=== PATIENT | male | born 1945 | race Caucasian/White ===

== ENCOUNTER 2016-08-01 10:16 | Inpatient (IN) | payer MEDICARE ==
[~2016-08-01] VITALS: Ht 183 cm; Wt 88.5 kg
[~2016-08-01 10:16] MED LIST: AMINOPHYLLIN200 MG PO; ASPIRIN81 M1 PO; BACTROBAN OINT0.9 GM NAS; BAYER ASPIRIN C81 MG PO; CARBIDOPA-LEVO1 EAC1 PO; CEFTRIAXONE1 GM IJ; CIPRO250 MG PO; CIPRO500 MG PO; DIFLUCAN150 MG PO; FLOMAX0.4 MG PO; FLUDROCORTISON0.1 MG PO; HYTRIN1 M1 PO; LIDEX0.05% T; LOPRESSOR25 MG PO; Lopressor25 MG PO; MACROBID100 M1 PO; MIDODRINE HCL10 MG PO; PERCOCET 325 MG1 TA2 PO; PREDNISONE10 M1 PO; PREMIERPRO RX500 M3 IV; PROSCAR5 M1 PO; PYRIDIUM200 M1 PO
[2016-08-01 10:20] VITALS: BP 112/70
[2016-08-01 10:49] LABS: ABG BASE EXCESS 6.9 mmol/L (-2.0-2.0); ABG CO2 CONTENT 37.9 mmol/L (23-27); ABG HCO3 35.5 mmol/l (22-26); ABG TEMPERATURE 98.6 F (98.0-99.0); ARTERIAL BLOOD GAS PH 7.267 (7.35-7.45)
[2016-08-01] MEDS ORDERED: ATORVASTATIN CA40 M1 PO (10:55)
[2016-08-01] MEDS ORDERED: CARBIDOPA25 MG PO (10:56)
[2016-08-01] MEDS ORDERED: DULCOLAX10 M1 RC (10:57)
[2016-08-01] MEDS ORDERED: DUONEB 3 MG/3 ML3 M1 INH (10:57)
[2016-08-01 11:01] LABS: HEMATOCRIT 34.9 % (42.0-52.0); HEMOGLOBIN 10.5 g/dl (14.0-18.0); MEAN CELL VOLUME 94.8 fl (80.0-94.0); MEAN CORPUSCULAR HGB 28.5 pg (27.0-31.0); MEAN CORPUSCULAR HGB CONC 30.1 g/dl (33.0-37.0); MEAN PLATELET VOLUME 10.7 fl (9.6-12.3); PLATELET COUNT AUTOMATED 139 10*3/uL (130-400); RED BLOOD COUNT 3.68 10*6/uL (4.50-5.90); RED CELL DISTRI WIDTH 14.3 % (0-14.5)
[2016-08-01 11:03] VITALS: BP 183/70
[2016-08-01 11:10] LABS: INTERNATIONAL NORM RATIO 1.1 (2.0-3.5); PROTHROMBIN TIME 11.2 SECONDS (9.0-12.4)
[2016-08-01 11:17] LABS: ALBUMIN 2.7 gm/dl (3.1-4.5); ALKALINE PHOSPHATASE 80 U/L (45-117); BILIRUBIN, TOTAL 0.2 mg/dl (0.2-1.0); BUN 19 mg/dl (7-24); C-REACTIVE PROTEIN 4.14 MG/DL (0-0.3); CARBON DIOXIDE 34 mmol/L (21-32); CHLORIDE 103 mmol/L (98-107); CKMB 3.8 ng/ml (0.5-3.6); CPK 105 U/L (39-308); EST GLOM FILT AFRICAN AMERICAN > 60 ml/min; GLUCOSE 143 mg/dL (65-99); POTASSIUM 4.6 mmol/L (3.5-5.1); SGOT/AST 28 IU/L (3-35); SGPT/ALT 10 U/L (12-78); SODIUM 145 mmol/L (136-145); TOTAL PROTEIN 6.5 gm/dL (6.4-8.2); TROPONIN I 0.016 ng/ml (<0.045)
[2016-08-01 11:20] LABS: EOSINOPHIL # 0.1 10*3/uL (0-0.4); EOSINOPHILS 1 % (1-4); HYPOCHROMIA SLIGHT; LYMPHOCYTE # 0.4 10*3/uL (1.3-4.4); METAMYELOCYTES 1 % (0-0); MONOCYTE # 0.2 10*3/uL (0.1-1.0); NEUTROPHIL # 7.3 10*3/uL (2.3-7.9); NEUTROPHILS 91 % (47-73); PLATELET SUFFICIENCY NORMAL (NORMAL); POLYCHROMASIA SLIGHT; TOTAL CELLS COUNTED 100 #CELLS
[2016-08-01 11:21] VITALS: BP 176/100
[2016-08-01 12:30] VITALS: BP 130/73
[2016-08-01 12:45] VITALS: BP 190/82
[2016-08-01 13:54] LABS: ABG CO2 CONTENT 34.6 mmol/L (23-27); ABG HCO3 33.4 mmol/l (22-26); ABG TEMPERATURE 97.8 F (98.0-99.0); ARTERIAL BLOOD GAS PH 7.543 (7.35-7.45)
[2016-08-01 16:28] LABS: CKMB 2.9 ng/ml (0.5-3.6); TROPONIN I 0.028 ng/ml (<0.045)
[2016-08-01 18:00] VITALS: BP 164/78
== END 2016-08-01 18:52 | disposition short-term general hospital (02) | DRG 871 ==
LOC: ED 10:16 → EDHOLD 11:21 → ICCU 11:59
PROVIDERS: Emergency Medicine; Internal Medicine Critical Care Medicine; Internal Medicine Hospice and Palliative Medicine
PROC: 5A1935Z Respiratory Ventilation, Less than 24 Consecutive Hours (ICD-10-PCS; principal; 2016-08-01)
PROC: 0BH17EZ Insertion of Endotracheal Airway into Trachea, Via Natural or Artificial Opening (ICD-10-PCS; principal; 2016-08-01)
DX: A41.9 Sepsis, unspecified organism (principal); J96.01 Acute respiratory failure with hypoxia; E43 Unspecified severe protein-calorie malnutrition; J18.9 Pneumonia, unspecified organism; G93.41 Metabolic encephalopathy; J96.02 Acute respiratory failure with hypercapnia; J44.0 Chronic obstructive pulmonary disease with (acute) lower respiratory infection; D64.9 Anemia, unspecified; G20 Parkinson's disease; I16.1 Hypertensive emergency; N40.0 Benign prostatic hyperplasia without lower urinary tract symptoms; R65.20 Severe sepsis without septic shock; I25.10 Atherosclerotic heart disease of native coronary artery without angina pectoris; E78.5 Hyperlipidemia, unspecified; K57.90 Diverticulosis of intestine, part unspecified, without perforation or abscess without bleeding; R73.9 Hyperglycemia, unspecified; E78.00 Pure hypercholesterolemia, unspecified; I10 Essential (primary) hypertension; Z87.891 Personal history of nicotine dependence; Z80.9 Family history of malignant neoplasm, unspecified; Z79.82 Long term (current) use of aspirin; Z79.899 Other long term (current) drug therapy; Z68.29 Body mass index [BMI] 29.0-29.9, adult

== ENCOUNTER 2016-08-07 13:50 | Inpatient (IN) | payer MEDICARE ==
[~2016-08-07] VITALS: Ht 177.8 cm; Wt 86.8 kg
--- NOTE | ~2016-08-07 | PR ---
[place], [place] PROGRESS NOTE NAME: [id number] UNIT #: [id number] ROOM: [place] [address] DOCTOR: CHANDLER BECKER DO BIRTHDATE: [birth year] DOS: 08/07/2016 Procedure note of endotracheal intubation. Date of intubation was 08/08/2016 at 1:00 a.m. INDICATION: Respiratory distress and hypercapnia. RESIDENT: Dr. Chandler Becker. ATTENDING: Dr. Yane Ramos. A timeout was completed, verifying the correct patient, procedure, site, positioning. The patient was placed in a flat position. Sedation was used using 10 mg of propofol initially; however, later another 10 mg of propofol was used followed by 10 of etomidate. The patient was easily ventilated using an Ambu bag. The GlideScope was used and inserted into the oropharynx at which time, there was a grade 1 view of the vocal cords. Multiple attempts were initially made to place the tube. Eventually after multiple attempts, a 6.5 Macedonian endotracheal tube was inserted and visualized through the vocal cords. Stylet was removed. Colorimetric change was visualized on the CO2 meter. Breath sounds were heard in both lung bullard equally. The endotracheal tube was placed at 24 cm measured at the lips. Dr. Ontivreos was present for the entire procedure. A chest x-ray was ordered to assess for pneumothorax and to verify endotracheal tube placement. Estimated blood loss was 5 mL. The patient tolerated the procedure well and there were no complications. This is Dr. Chandler Becker dictating the patient procedure note on behalf of Dr. Ontiveros in the Emergency Department. CHANDLER BECKER DO YANE RAMOS MD CM:PNTRANS [phone] CHANLDER BECKER DO 08/08/16 0803 interface
--- NOTE | ~2016-08-07 | CON ---
[place], [place] REPORT OF CONSULTATION NAME: JUAN M FRANCISCO UNIT #: [id number] ROOM: [facility] DOCTOR: JENNY MCKEON MD,DOMITILA BIRTHDATE: [birth year] DOS: 08/08/2016 CRITICAL CARE EVALUATION AND MANAGEMENT NOTE HISTORY OF PRESENT ILLNESS: The patient was staying at the [facility], seen yesterday for the patient prior to the hospitalization. The patient has been noted awake and alert for this patient and sitting on the chair. Later on, the patient has been noted with unresponsiveness, the patient with abnormal staring. The patient was sent to the Emergency Room for further assessment, possibility of TIA was considered for this patient. The patient noted with improvement in mental status yesterday. The patient has rather developed unresponsiveness again for the patient during his admission to medical floor. He has been transferred to the Intensive Care Unit for this patient and was intubated and started on mechanical ventilation because of the change in mental status and complete unresponsiveness. The patient has been currently intubated with endotracheal tube size #7.5. He has not been reported with any seizure activity, which has been noticed for this patient at time of the resuscitative efforts. He has been currently getting intravenous Diprivan for this patient as well at this time. He has not reported any frothy secretion production or hemoptysis, which has been suctioned out from the endotracheal tube. He has not been noted any major hemodynamic instability. REVIEW OF SYSTEMS: Could not be completed since the patient is currently noted intubated and noted on mechanical ventilation. All the history has been obtained for this patient from review of the current documentation and my past consultation documentation and others. PAST MEDICAL HISTORY: 1. The patient was noted with previous hospitalization for the patient. In July 2016, the patient was treated in this hospital and discharged to the nursing facility for the patient as he had been completing the treatment for the patient for acute hypercapnic hypoxic respiratory failure with acute bacterial pneumonia, azotemia as well as thrombocytopenia. 2. Past medical history for this patient was known as history of longstanding parkinsonism. 3. History of past acute respiratory failure requiring intubation and mechanical ventilation. 4. Oropharyngeal dysphagia of the patient as well. 5. Essential hypertension. 6. Urinary tract infection. 7. Several TIAs in the past. 8. History of moderate obesity. PAST SURGICAL HISTORY: 1. TURP for this patient. 2. Cystoscopy. 3. Intubation and mechanical ventilation in May 2016. 4. Previous possible bronchoscopy for the patient with the last bronchoscopy done on 07/21/2016. [place], [place] REPORT OF CONSULTATION NAME: JUAN M FRANCISCO UNIT #: [id number] ROOM: [facility] DOCTOR: JENNY MCKEON MD,DOMITILA BIRTHDATE: [birth year] SOCIAL HISTORY: The patient , [facility], for the past several months intermittently. The patient also remained in the long-term acute care facility in the past for the patient as well. He has not been noted any history of active tobacco use. Tobacco use has been noted in the past, which was discontinued several years ago, approximately half a pack to a pack of cigarettes per day. There was no history of illicit drug use or any alcohol use. FAMILY HISTORY: Mother for this patient from complication of natural causes of the patient at the age of 9090 years old. Father at the age of 7070 years old, complication related to unknown cancer. MEDICATIONS: Current administered medications noted use of Lipitor, prednisone 50 mg daily, Flomax, aspirin, finasteride, Lovenox, metoprolol tartrate, IV Rocephin and IV propofol. The patient also getting Lovenox for the patient DVT prophylaxis. PHYSICAL EXAMINATION: GENERAL: A 71 years old male who has been currently noted intubated on mechanical ventilation at this time. The patient's height was noted as 5 feet 10 inches, weight of 191 pounds, BMI 27.4. VITAL SIGNS: For the patient which were recorded showed the temperature noted as normal, respiratory rate 12, heart rate 82, blood pressure 130/60-122/60 at the present time. HEENT: The patient orally intubated. NECK: Supple. Head was atraumatic. Eyes nonicterus. CARDIOVASCULAR SYSTEM: S1, S2 is audible. LUNGS: The patient was noted without any wheezing or crackles at the present time. ABDOMEN: Soft, nontender, bowel sounds present. CENTRAL NERVOUS SYSTEM: Currently, the patient intubated, noted on mechanical ventilation. LABORATORY DATA: The CBC yesterday of the patient in the Emergency Room for the patient on admission, hemoglobin 10.5, hematocrit 34.7, WBC count was normal, platelet count was normal. Lactic acid 0.6 yesterday. PT/PTT yesterday on admission normal. CMP of the patient on 08/07/2016 for the patient shows BUN 32, creatinine was normal. CO2 was noted as 37. CPK 27, lipase mildly elevated 656, albumin 2.7, total protein of 6.0 mildly decreased. CBC for the patient that was done this morning was essentially noted stable and the same with normal WBC count. BMP of this morning for this patient, BUN 33, creatinine remains normal. Glucose was normal, sodium 146. CBC of the patient of 08/08/2016, hemoglobin 10.2, hematocrit 33.2, platelet count was normal and WBC count was normal. Urine culture of the patient showed no bacterial growth. Preliminary finding of culture results were pending. Arterial blood gas that was done yesterday for the patient, pH of 7.25, pCO2 87.7, pO2 80 prior to intubation and mechanical ventilation. Arterial blood gas of the patient this morning for the patient on 70% oxygen, pH of 7.52, pCO2 of 42, pO2 of 134. Review of the radiology data for this patient is a next category for this patient. The patient had a chest x-ray of the patient that was done PA lateral view for the [place], [place] REPORT OF CONSULTATION NAME: JUAN M FRANCISCO UNIT #: [id number] ROOM: [facility] DOCTOR[facility] [birth year] patient 08/07/2016, the patient was noted without any acute infiltration. Ultrasound of the carotids was completed yesterday as well bilaterally showed less than 50% stenosis, bilateral internal carotid arteries. CT scan of the head was also completed for the patient on 08/07/2016 for the patient current abnormal neurologic symptoms were noted without any acute intracranial process. The chest x-ray done this morning for the patient, endotracheal tube in appropriate position, a small area of atelectasis for this patient in the left lower lung. IMPRESSION: 1. The patient who has been currently noted with acute hypercapnic hypoxic respiratory failure for the patient which is noted recurrent with unresponsiveness related to the transient ischemic attack. Possibility of acute exacerbation of chronic obstructive pulmonary disease of the patient cannot be completely excluded. 2. Chronic metabolic alkalosis for this patient as well. 3. The patient with history of parkinsonism. 4. History of parkinsonism with questionable aspiration and left lower lobe atelectasis. 5. Overall debility for the patient, which has been known. PLAN OF TREATMENT: Ventilator bundle management will be completed starting the patient on Peridex for this patient rinse as well as use of the IV Protonix. The Gram stain culture of the sputum for the patient will be obtained if there will be enough secretions to be sent to the laboratory. Continue bronchodilator for the patient to help mobilize the secretions. The patient will be started on feeding as well. Obtain the prealbumin level of the patient to assess the underlying nutritional status. Other supportive therapy, plan of management as in progress to be continued. Continue current DVT prophylaxis. Further treatment changes for the patient will be done based on the progression of the illness. Monitoring the metabolic alkalosis. The patient most likely will end up getting a tracheostomy for the patient because of the recurrent respiratory failure, unresponsiveness and past history of intubation and mechanical ventilation as well. Total time for pulmonary critical care evaluation and management for the patient today is noted 40 minutes. DOMITILA ALVARADO MD CM:CONSTR:REPORT OF CONSULTATION 1412 08/09/16 0405 interface
--- NOTE | ~2016-08-07 | PR ---
[place], [place] PROGRESS NOTE NAME: [facility]CO [id number] UNIT #: [id number] ROOM: [facility] DOCTOR: JENNY MCKEON MD,DOMITILA BIRTHDATE: [birth year] DOS: 08/09/2016 PULMONARY CRITICAL CARE EVALUATION AND MANAGEMENT SUBJECTIVE: He has been comfortably resting in the bed. The sedation has been discontinued for the patient this morning. The patient has been noted to be awake and alert this afternoon at the time of the assessment. He does not follow much of the vocal commands because of underlying history of Parkinsonism. Appears to be comfortable at this time without any distress. There was no hemodynamic instability noted. OBJECTIVE: VITAL SIGNS: For the patient which has been recorded shows the temperature for the patient normal temperature, respiratory rate recorded as 12, heart rate of 95, blood pressure 130/78-108/62. Pulse oxygen saturation of the patient recorded on 30% oxygen 100% saturation. HEENT: Chronic obesity. NECK: Supple and obese. The patient remains orally intubated. CARDIOVASCULAR: S1, S2 audible. LUNGS: The patient noted without any wheezing or crackles at the present time. Breaths are noted mildly decreased bilaterally. ABDOMEN: Soft, nontender. LABORATORY DATA: Preliminary culture of the endotracheal aspirate of the patient was noted with many white blood cells, no organisms seen with normal lora preliminary. The urine culture showed moderate growth of yeast. CBC of the patient of 08/09/2016, hemoglobin 9.9, hematocrit 30.6, platelet count was normal, WBC count was normal. CMP this morning, BUN 33, creatinine 1.22. Arterial blood gas this morning, pH of 7.56, pCO2 of 34, pO2 of 128 on 40% oxygen supplementation. The patient had a CTA of the chest that was done yesterday by the primary care attending was noted with small pulmonary embolism in the right upper lung pulmonary arterial branches for this patient with a small left-sided pleural fluid, dependent area of atelectasis noted for this patient as well, possibility of pneumonia has been also considered. IMPRESSION: 1. The patient with acute respiratory failure was noted at this time, small pulmonary embolism described in the right upper lobe for the patient. 2. Bilateral lower lobe pneumonia with aspiration. 3. History of Parkinson's disease, recurrent aspiration pneumonia as well. 4. Severe debility. 5. Resolving acute hypoxic respiratory failure. PLAN OF TREATMENT: The patient has been started on CPAP of 5, pressure support of 10, which seemed to be tolerated at this time. The current mode of mechanical ventilation will be continued off sedation for 2 hours if tolerated. The patient will be considered for liberation from mechanical ventilation and possibly use of the BiPAP afterwards as necessary. In the meantime, continue other treatment therapy, plan and management. Nutritional support will be continued until liberation from mechanical ventilation with the NG tube. [place], [place] PROGRESS NOTE NAME: JUAN M FRANCISCO UNIT #: [id number] ROOM: [facility] DOCTOR: JENNY MCKEON MD,DOMITILA BIRTHDATE: [birth year] Continue current antibiotics. Monitor culture results. Anticoagulation of the patient for the management of pulmonary embolism for this patient as well with Lovenox was started 1 mg/kg b.i.d. dosing. Continue current dose of prednisone 50 mg daily as well for the medical management of exacerbation of bronchial asthma. Supportive therapy, plan of management, other care. Total time for pulmonary critical care evaluation and management was 35 minutes. DOMITILA ALVARADO MD CM:CHELSEA [phone] DOMITILA MCKEON MD 08/09/162154 interface
--- NOTE | ~2016-08-07 | PR ---
[place], [place] PROGRESS NOTE NAME: JUAN M FRANCISCO UNIT #: [id number] ROOM: [facility] DOCTOR: DOMITILA DESAI MD BIRTHDATE: [birth year] DOS: 08/10/2016 PULMONARY FOLLOWUP SUBJECTIVE: He had been sitting on the chair this morning and was successfully liberated from mechanical ventilator yesterday. The patient has been noted with severe hematuria, which was noted at the bedside, which we noted gross hematuria. OBJECTIVE: VITAL SIGNS: The patient showed normal temperature, respiratory rate 16, heart rate 86, blood pressure 132/86. Pulse oxygen saturation of the patient recorded on room air was 94% saturation. HEENT: Chronic obesity. NECK: Supple. CARDIOVASCULAR: S1, S2 audible. LUNGS: Noted without any wheezing or crackles. ABDOMEN: Soft, nontender. LABORATORY DATA: CBC: The patient's hemoglobin 10.1, hematocrit 31.2, platelet count were normal. WBC count normal. The cultures of the endotracheal aspirate shows normal lora. The BMP of the patient this morning: BUN 33, creatinine was normal. Arterial blood gas yesterday prior to liberation of mechanical ventilation, CPAP mode, pH of 7.46, pCO2 of 43, pO2 of 140. IMPRESSION: 1. The patient has been currently noted with acute pulmonary embolism, acute respiratory failure, and severe hematuria for the patient was noted at the present time as well. 2. Past history of transient ischemic attack and cerebrovascular accident. 3. History of parkinsonism. PLAN OF TREATMENT: The patient needs to be assessed by the Urology services. It was difficult for the patient to continue anticoagulation because of current gross hematuria. He might require IVC filter placement for that. In the meantime, continue with supportive therapy, plan and management, usual care, treatment and plan of management. Supportive care. [place], [place] PROGRESS NOTE NAME: JUAN M FRANCISCO UNIT #: [id number] ROOM: [facility] DOCTOR: DOMITILA DESAI MD BIRTHDATE: [birth year] DOMITILA ALVARADO MD CM:PNTRANS [phone] DOMITILA MCKEON MD 08/11/16 1553 interface
[~2016-08-07 13:50] MED LIST changes: +ATORVASTATIN CA40 M1 PO; +CARBIDOPA25 MG PO; +DULCOLAX10 M1 RC; +DUONEB 3 MG/3 ML3 M1 INH
[2016-08-07 14:04] VITALS: BP 116/65
[2016-08-07 14:26] LABS: BASO % 0.1 % (0.0-1.0); EOS # 0.1 10*3/uL (0.0-0.4); EOS % 0.8 % (1.0-4.0); HEMATOCRIT 34.7 % (42.0-52.0); HEMOGLOBIN 10.5 g/dl (14.0-18.0); LYMPH # 0.4 10*3/uL (1.3-4.4); LYMPH % 4.8 % (27.0-41.0); MEAN CORPUSCULAR HGB 28.2 pg (27.0-31.0); MEAN CORPUSCULAR HGB CONC 30.3 g/dl (33.0-37.0); MONO # 0.3 10*3/uL (0.1-1.0); MONO % 4.4 % (3.0-9.0); NEUT # 6.5 10*3/uL (2.3-7.9); NEUT % 89.5 % (47.0-73.0); PLATELET COUNT AUTOMATED 161 10*3/uL (130-400); RED BLOOD COUNT 3.73 10*6/uL (4.50-5.90); RED CELL DISTRI WIDTH 14.3 % (0-14.5); WHITE BLOOD COUNT 7.3 10*3/uL (4.8-10.8)
[2016-08-07 14:35] LABS: INTERNATIONAL NORM RATIO 1.1 (2.0-3.5); PROTHROMBIN TIME 11.7 SECONDS (9.0-12.4)
[2016-08-07] MEDS ORDERED: MILK OF MA400 MG/5 M PO (14:36)
[2016-08-07] MEDS ORDERED: LOPRESSOR25 MG PO (14:37)
[2016-08-07] MEDS ORDERED: PROSCAR5 M1 PO (14:37)
[2016-08-07] MEDS ORDERED: PREDNISONE10 M1 PO (14:39)
[2016-08-07 14:48] LABS: ALBUMIN 2.7 gm/dl (3.1-4.5); ALKALINE PHOSPHATASE 75 U/L (45-117); BILIRUBIN, TOTAL 0.3 mg/dl (0.2-1.0); BUN 32 mg/dl (7-24); CARBON DIOXIDE 37 mmol/L (21-32); CHLORIDE 102 mmol/L (98-107); CKMB 0.7 ng/ml (0.5-3.6); EST GLOM FILT AFRICAN AMERICAN > 60 ml/min; GLUCOSE 114 mg/dL (65-99); MAGNESIUM 2.1 mg/dL (1.5-2.1); POTASSIUM 4.7 mmol/L (3.5-5.1); SGOT/AST 13 IU/L (3-35); SODIUM 145 mmol/L (136-145)
[2016-08-07 14:49] LABS: SGPT/ALT < 6 U/L (12-78); TROPONIN I < 0.015 ng/ml (<0.045)
[2016-08-07 14:50] LABS: CPK 27 U/L (39-308)
[2016-08-07 16:23] LABS: BILIRUBIN NEGATIVE (NEGATIVE); BLOOD 3+ (NEGATIVE); CLARITY CLOUDY (CLEAR); COLOR RED (YELLOW); GLUCOSE NEGATIVE (NEGATIVE); KETONE NEGATIVE (NEGATIVE); NITRITE NEGATIVE (NEGATIVE); PH 5.5 (5.0-9.0); PROTEIN 2+ (NEGATIVE); SPECIFIC GRAVITY 1.015 (1.005-1.030); UROBILINOGEN 0.2 E.U./dl (0.2-1.0)
[2016-08-07 16:24] LABS: LEUKO ESTERASE 3+ (NEGATIVE)
[2016-08-07 16:36] LABS: BACTERIA 1+; RBC TNTC rbc/hpf (0-2); URINE REFLEX COMMENT YES (NO); WBC TNTC wbc/hpf (0-5)
[2016-08-07 17:00] VITALS: BP 130/60
[2016-08-07 20:00] VITALS: BP 137/66
[2016-08-07 23:18] VITALS: BP 116/57
[2016-08-07 23:35] LABS: EOS % 0.5 % (1.0-4.0); HEMATOCRIT 36.1 % (42.0-52.0); HEMOGLOBIN 10.9 g/dl (14.0-18.0); IG # 0.1 10*3/uL (0.0-0.1); LYMPH # 0.7 10*3/uL (1.3-4.4); LYMPH % 8.8 % (27.0-41.0); MEAN CELL VOLUME 92.6 fl (80.0-94.0); MEAN CORPUSCULAR HGB 27.9 pg (27.0-31.0); MEAN CORPUSCULAR HGB CONC 30.2 g/dl (33.0-37.0); MEAN PLATELET VOLUME 10.3 fl (9.6-12.3); MONO # 0.3 10*3/uL (0.1-1.0); MONO % 4.2 % (3.0-9.0); NEUT # 6.6 10*3/uL (2.3-7.9); NEUT % 85.7 % (47.0-73.0); PLATELET COUNT AUTOMATED 167 10*3/uL (130-400); RED CELL DISTRI WIDTH 14.3 % (0-14.5); WHITE BLOOD COUNT 7.7 10*3/uL (4.8-10.8)
[2016-08-07 23:53] LABS: ALBUMIN 2.8 gm/dl (3.1-4.5); ALKALINE PHOSPHATASE 68 U/L (45-117); BILIRUBIN, TOTAL 0.2 mg/dl (0.2-1.0); BUN 31 mg/dl (7-24); CARBON DIOXIDE 39 mmol/L (21-32); CHLORIDE 101 mmol/L (98-107); EST GLOM FILT AFRICAN AMERICAN > 60 ml/min; GLUCOSE 98 mg/dL (65-99); MAGNESIUM 2.2 mg/dL (1.5-2.1); POTASSIUM 4.7 mmol/L (3.5-5.1); SGOT/AST 11 IU/L (3-35); SGPT/ALT < 6 U/L (12-78); SODIUM 145 mmol/L (136-145); TROPONIN I < 0.015 ng/ml (<0.045)
[2016-08-08] VITALS (12 sets, daily range): BP systolic 98–142; BP diastolic 58–76
[2016-08-08 00:05] LABS: ABG CO2 CONTENT 40.5 mmol/L (23-27); ABG HCO3 37.8 mmol/l (22-26); ABG TEMPERATURE 97.5 F (98.0-99.0); ARTERIAL BLOOD GAS PH 7.253 (7.35-7.45)
[2016-08-08 05:11] LABS: ABG CO2 CONTENT 36.3 mmol/L (23-27); ABG TEMPERATURE 98.4 F (98.0-99.0); ARTERIAL BLOOD GAS PH 7.523 (7.35-7.45)
[2016-08-08 05:48] LABS: BUN 33 mg/dl (7-24); CARBON DIOXIDE 39 mmol/L (21-32); CHLORIDE 100 mmol/L (98-107); CHOLESTEROL 182 mg/dL (<200); EST GLOM FILT AFRICAN AMERICAN > 60 ml/min; FREE T4 1.06 ng/dl (0.76-1.46); GLUCOSE 76 mg/dL (65-99); HDL CHOLESTEROL 82 mg/dl (40-60); LDL CHOLESTEROL 72 mg/dL (9-159); MAGNESIUM 2.1 mg/dL (1.5-2.1); PHOSPHOROUS 2.2 mg/dL (2.5-4.9); POTASSIUM 4.5 mmol/L (3.5-5.1); SODIUM 146 mmol/L (136-145); TRIGLYCERIDES 141 mg/dl (<150); VLDL CHOLESTEROL 28 mg/dL (6-40)
[2016-08-08 05:54] LABS: BASO % 0.1 % (0.0-1.0); EOS # 0.1 10*3/uL (0.0-0.4); EOS % 1.3 % (1.0-4.0); HEMATOCRIT 33.6 % (42.0-52.0); HEMOGLOBIN 10.2 g/dl (14.0-18.0); LYMPH # 0.7 10*3/uL (1.3-4.4); LYMPH % 9.5 % (27.0-41.0); MEAN CELL VOLUME 91.3 fl (80.0-94.0); MEAN CORPUSCULAR HGB 27.7 pg (27.0-31.0); MEAN CORPUSCULAR HGB CONC 30.4 g/dl (33.0-37.0); MEAN PLATELET VOLUME 10.9 fl (9.6-12.3); MONO # 0.3 10*3/uL (0.1-1.0); MONO % 4.4 % (3.0-9.0); NEUT # 5.8 10*3/uL (2.3-7.9); NEUT % 84.3 % (47.0-73.0); PLATELET COUNT AUTOMATED 154 10*3/uL (130-400); RED BLOOD COUNT 3.68 10*6/uL (4.50-5.90); RED CELL DISTRI WIDTH 14.1 % (0-14.5); WHITE BLOOD COUNT 6.9 10*3/uL (4.8-10.8)
[2016-08-08 07:20] LABS: HEMOGLOBIN A1c 5.4 % (4.8-5.6)
[2016-08-08 07:57] LABS: FOLIC ACID 21.93 ng/mL (>5.38); VITAMIN D, 25-HYDROXY 14.6 ng/mL (30-100)
[2016-08-09] VITALS (9 sets, daily range): BP systolic 84–148; BP diastolic 52–82
[2016-08-09 04:39] LABS: ABG BASE EXCESS 8.9 mmol/L (-2.0-2.0); ABG CO2 CONTENT 32.5 mmol/L (23-27); ABG HCO3 31.5 mmol/l (22-26); ABG TEMPERATURE 98.9 F (98.0-99.0); ARTERIAL BLOOD GAS PH 7.565 (7.35-7.45)
[2016-08-09 06:08] LABS: BASO % 0.2 % (0.0-1.0); EOS # 0.1 10*3/uL (0.0-0.4); EOS % 2.4 % (1.0-4.0); HEMATOCRIT 30.6 % (42.0-52.0); HEMOGLOBIN 9.9 g/dl (14.0-18.0); IG # 0.1 10*3/uL (0.0-0.1); LYMPH # 0.9 10*3/uL (1.3-4.4); LYMPH % 15.5 % (27.0-41.0); MEAN CORPUSCULAR HGB 28.4 pg (27.0-31.0); MEAN CORPUSCULAR HGB CONC 32.4 g/dl (33.0-37.0); MEAN PLATELET VOLUME 11.4 fl (9.6-12.3); MONO # 0.3 10*3/uL (0.1-1.0); MONO % 4.6 % (3.0-9.0); NEUT # 4.2 10*3/uL (2.3-7.9); NEUT % 76.4 % (47.0-73.0); PLATELET COUNT AUTOMATED 158 10*3/uL (130-400); RED BLOOD COUNT 3.49 10*6/uL (4.50-5.90); RED CELL DISTRI WIDTH 14.5 % (0-14.5); WHITE BLOOD COUNT 5.5 10*3/uL (4.8-10.8)
[2016-08-09 06:20] LABS: ALBUMIN 2.6 gm/dl (3.1-4.5); ALKALINE PHOSPHATASE 55 U/L (45-117); BILIRUBIN, TOTAL 0.3 mg/dl (0.2-1.0); BUN 36 mg/dl (7-24); CARBON DIOXIDE 34 mmol/L (21-32); CHLORIDE 104 mmol/L (98-107); EST GLOM FILT AFRICAN AMERICAN > 60 ml/min; GLUCOSE 86 mg/dL (65-99); SGOT/AST 14 IU/L (3-35); SGPT/ALT 15 U/L (12-78); SODIUM 142 mmol/L (136-145); TOTAL PROTEIN 5.4 gm/dL (6.4-8.2)
[2016-08-09 06:21] LABS: PREALBUMIN 23 mg/dl (20-40)
[2016-08-09 06:30] LABS: POTASSIUM 3.4 mmol/L (3.5-5.1)
[2016-08-09 06:32] LABS: MEAN CELL VOLUME 87.7 fl (80.0-94.0)
[2016-08-09 14:57] LABS: ABG BASE EXCESS 6.5 mmol/L (-2.0-2.0); ABG HCO3 30.7 mmol/l (22-26); ABG TEMPERATURE 98.1 F (98.0-99.0); ARTERIAL BLOOD GAS PH 7.461 (7.35-7.45)
[2016-08-10] VITALS: BP 120/70
[2016-08-10 04:00] VITALS: BP 133/67
[2016-08-10 06:51] LABS: BUN 33 mg/dl (7-24); CARBON DIOXIDE 30 mmol/L (21-32); CHLORIDE 106 mmol/L (98-107); EST GLOM FILT AFRICAN AMERICAN > 60 ml/min; GLUCOSE 71 mg/dL (65-99); SODIUM 144 mmol/L (136-145)
[2016-08-10 07:00] LABS: HEMATOCRIT 31.2 % (42.0-52.0); HEMOGLOBIN 10.1 g/dl (14.0-18.0); MEAN CELL VOLUME 88.4 fl (80.0-94.0); MEAN CORPUSCULAR HGB 28.6 pg (27.0-31.0); MEAN CORPUSCULAR HGB CONC 32.4 g/dl (33.0-37.0); MEAN PLATELET VOLUME 12.5 fl (9.6-12.3); PLATELET COUNT AUTOMATED 139 10*3/uL (130-400); RED BLOOD COUNT 3.53 10*6/uL (4.50-5.90); RED CELL DISTRI WIDTH 14.6 % (0-14.5); WHITE BLOOD COUNT 10.1 10*3/uL (4.8-10.8)
[2016-08-10 08:00] VITALS: BP 166/85
[2016-08-10 12:00] VITALS: BP 133/66
[2016-08-10] MEDS ORDERED: ENOXAPARIN80 MG/0.2 SC (14:18)
[2016-08-10 16:00] VITALS: BP 109/66; BP 137/71; BP 143/62
== END 2016-08-10 18:03 | disposition short-term general hospital (02) | DRG 208 ==
LOC: ED 13:50 → EDHOLD 15:59 → ICCU 15:59 → 5E 16:26 → ICCU 23:36
PROVIDERS: Internal Medicine; Internal Medicine Critical Care Medicine; Nurse Practitioner Family; Student in an Organized Health Care Education/Training Program
PROC: 0BH17EZ Insertion of Endotracheal Airway into Trachea, Via Natural or Artificial Opening (ICD-10-PCS; principal; 2016-08-08)
PROC: 5A1935Z Respiratory Ventilation, Less than 24 Consecutive Hours (ICD-10-PCS; principal; 2016-08-08)
DX: J96.21 Acute and chronic respiratory failure with hypoxia (principal); I26.99 Other pulmonary embolism without acute cor pulmonale; E43 Unspecified severe protein-calorie malnutrition; E87.0 Hyperosmolality and hypernatremia; N39.0 Urinary tract infection, site not specified; G20 Parkinson's disease; N18.3 Chronic kidney disease, stage 3 (moderate); D64.9 Anemia, unspecified; G45.9 Transient cerebral ischemic attack, unspecified; J44.1 Chronic obstructive pulmonary disease with (acute) exacerbation; J96.22 Acute and chronic respiratory failure with hypercapnia; I12.9 Hypertensive chronic kidney disease with stage 1 through stage 4 chronic kidney disease, or unspecified chronic kidney disease; N40.0 Benign prostatic hyperplasia without lower urinary tract symptoms; R73.9 Hyperglycemia, unspecified; I25.10 Atherosclerotic heart disease of native coronary artery without angina pectoris; E55.9 Vitamin D deficiency, unspecified; D72.825 Bandemia; Q13.0 Coloboma of iris; Z87.891 Personal history of nicotine dependence; Z80.9 Family history of malignant neoplasm, unspecified; Z79.82 Long term (current) use of aspirin; Z79.899 Other long term (current) drug therapy; Z68.28 Body mass index [BMI] 28.0-28.9, adult

== ENCOUNTER 2016-08-25 05:34 | Inpatient (IN) | payer MEDICARE ==
[2016-08-25] VITALS (13 sets, daily range): BP systolic 92–141; BP diastolic 37–66
[~2016-08-25] VITALS: Ht 182.8 cm; Wt 87.8 kg
--- NOTE | ~2016-08-25 | CON ---
[place], [place] REPORT OF CONSULTATION NAME: JUAN M FRANCISCO UNIT #: [id number] ROOM: [facility] DOCTOR: DOMITILA DESAI MD BIRTHDATE: [birth year] DOS: 08/25/2016 PULMONARY CONSULTATION, EVALUATION AND MANAGEMENT REASON FOR CONSULTATION: Acute respiratory failure. HISTORY OF PRESENT ILLNESS: A 71-year-old white male who was a resident at the nursing facility, was admitted to the residential facility about 5-6 days ago after treatment in this hospital. The patient has been brought back to the hospital emergency room. The patient has been noted with increased lethargy with change in mental status at the nursing facility. The patient has been noted with hypoxia as well, started 100% nonrebreather mask. He was also noted with some hypotension and also noted with evidence of severe hyperkalemia. The patient has been admitted to the hospital for further medical management. The patient was requested to be transferred to ___ [facility] for this patient, but the hospital stated that the patient will be responsible for the out of pocket expense of this patient. So, subsequently the patient admitted to this hospital for further medical management. He has been currently noted with intubation and mechanical ventilation. The patient has been given intravenous fluids and noted with normal blood pressure. ASSESSMENT: This morning, the patient was opening his eyes with vocal commands getting intravenous Diprivan. He was noted mild sinus tachycardia as well. Small amount of hematuria was also observed in the Pradhan catheter as well, which has been mild reddish color. REVIEW OF SYSTEMS: Cannot be obtained for this patient because of the patient's current intubation and mechanical ventilatory status. Rest of history essentially of the patient has been reviewed for this patient from past documentation assessment of this patient. The previous medical history, the patient noted with last hospitalization. In this hospital, the patient was treated under care of the hospitalist service for this patient and I have seen the patient during that hospitalization on 08/10/16 and the patient was managed for this patient for acute small pulmonary embolus. The patient with acute respiratory failure, noted with severe hematuria for this patient and other problem. After that, the patient was sent to _[facility] for further medical management. For the hematuria and other problems, the details were unknown, about the patient's further workup and management at that facility. PAST MEDICAL HISTORY: The patient was noted, 1. History of longstanding parkinsonism. 2. History of current acute hypercapnic and hypoxic respiratory failure, unresponsiveness, requiring intubation and mechanical ventilation several times in the past 6-12 months. 3. Oropharyngeal dysphagia. 4. Essential hypertension. [place], [place] REPORT OF CONSULTATION NAME: JUAN M FRANCISCO UNIT #: [id number] ROOM: [facility] DOCTOR: JENNY MCKEON MD,[facility] BIRTHDATE: [birth year] 5. Urinary tract infection. 6. Past history of pneumonia. 7. Hematuria. 8. Chronic moderate obesity. 9. Significant decreased mobility patient as well. PAST SURGICAL HISTORY: 1. TURP. 2. Cystoscopy. 3. Intubation and mechanical ventilation. 4. Bronchoscopy for this patient as well. SOCIAL HISTORY: The patient is , was currently noted a [facility] of [facility] of the time in the past 6 months. The patient remains in the long-term acute care facility and other hospitals as well including [facility]. Tobacco use, the patient noted in the distant past. The patient discontinued many years ago. The patient used to smoke at that time about a pack of cigarettes per day, started as a teenager. No history of alcohol or illicit drug use. FAMILY HISTORY: Mother for this patient from complication of natural causes when she was 90 years old. Father at the age of 7070 years old from complication related to unknown cancer. MEDICATIONS: Current administered medications, the patient noted use of IV Solu-Medrol, Protonix, vancomycin, Zosyn, Levaquin, and other p.r.n. medications administration. DRUG ALLERGY HISTORY: The patient was noted as no known drug allergies. PHYSICAL EXAMINATION: GENERAL: A 71-year-old white male who has been currently intubated, noted on mechanical ventilation with eyes open for this patient spontaneously by the patient. At this time, not following vocal commands. HEENT: He is orally intubated. Orogastric tube is in place. NECK: Supple, short and obese. CARDIOVASCULAR: S1, S2 audible. LUNGS: Without any wheeze or crackles. ABDOMEN: Soft, nontender. LABORATORY DATA: Lactic acid noted 1.4 today. INR this morning was noted 1.2 subtherapeutic. BMP 08/25, the patient noted BUN 75, creatinine 3.61. Glucose 132. Potassium 6.4. The albumin 2.1, total protein of 5.2. CBC of the patient 08/25 WBC count of 18,000, hemoglobin 9.2, hematocrit 29.8, platelet count 23,000 with 85% segmented neutrophils. [place], [place] REPORT OF CONSULTATION NAME: JUAN M FRANCISCO UNIT #: [id number] ROOM: [facility] DOCTOR: JENNY MCKEON MD,[facility] BIRTHDATE: [birth year] The chest x-ray of the patient that was done for the patient on 08/25, limited view for this patient, endotracheal tube and NG tube was noted in appropriate position. Small left basilar area of infiltration was also noted. Arterial blood gas pH of 7.25, pCO2 of 59, pO2 of 98 for this patient on the mechanical ventilator early this morning. The patient has a V/Q scan done for this patient during this admission at 8 a.m., was noted with only perfusion scan was done for this patient because of the patient's inability to do the ventilation component because of the mechanical ventilation described. No major perfusion defects. The arterial blood gas for this patient 60% oxygen, pH of 7.29, pCO2 of 53, pO2 of 145 ____ for this patient as change in mechanical ventilator settings assist control mode with tidal volume of 650, PEEP of 5.0 and oxygen decreased from 80% to 60% oxygen. Urine drug screen for the patient was also done for this patient that was noted all negative. Blood culture for patient from previous admission. The patient on 08/07 showed no bacterial growth reported on final culture report this morning. IMPRESSION: 1. The patient has been currently admitted to the hospital for unresponsiveness, signs of hypotension, acute severe hypoxic and hypercapnic respiratory failure, most likely related to aspiration pneumonia. The patient's left lower lobe could be very likely the source of infection. The etiology would be considered with gram-positive and gram-negative organisms. 2. History of longstanding parkinsonism for this patient in mostly bed bound status. The patient was noted for several months for this patient intermittently. 3. The patient with history of chronic obesity as well. 4. Hematuria for the patient, which has been noted, very mild at this time, noted gross hematuria previously. PLAN OF TREATMENT: Agree with use of current broad spectrum intravenous antibiotics. Monitor culture results for this patient of the blood and urine culture. The patient has been ordered. The endotracheal aspirate culture was ordered as well. The Diprivan will be continued for sedation. For the DVT prophylaxis, the patient will be avoided any heparinized and other solution and anticoagulants because of the hematuria and ordered the SCDs. Nutrition support for this patient has been ordered. Assess the possibility of protein-calorie malnutrition suspected moderately with the prealbumin level that was ordered for the morning. Other symptoms and patient management to be continued accordingly. Usual care. Supportive therapy, plan of care. Ventilator bundle management has been initiated as well. Total time pulmonary critical care evaluation and management today was 40 minutes. [place], [place] REPORT OF CONSULTATION NAME: NOLANJUAN M Gabe UNIT #: [id number] ROOM: [facility] DOCTOR: DOMITILA DESAI MD BIRTHDATE: [birth year] DOMITILA ALVARADO MD CM:CONSTR:REPORT OF CONSULTATION 1253 08/26/16 0629 interface
--- NOTE | ~2016-08-25 | PR ---
[place], [place] PROGRESS NOTE NAME: JUAN M FRANCISCO UNIT #: [id number] ROOM: [facility]- DOCTOR: IZABELLA CRENSHAW MD BIRTHDATE: [birth year] DOS: 08/26/2016 NEPHROLOGY PROGRESS NOTE SUBJECTIVE: The patient is more alert. He remains intubated and sedated in the ICU. He nods appropriately to questions. Denies any acute pain. Plans are noted for him to transfer to Urology facility with urology support at [facility] in [place]. At this time, his vital signs were stabilized. His creatinine is improving. His urine output is acceptable, but unclear if it is completely accurately captured as he is continually leaking around his Pradhan catheter. His acidosis has resolved and his hyperkalemia has also resolved. He remains anemic. His hemoglobin is worse at 7.3 from 9.2. He has a history of high hematuria and urinalysis yesterday was positive for blood as well as protein. INR is within acceptable limits, but he is on heparin drip. His renal ultrasound was done yesterday, which showed moderate right hydroureteronephrosis, irregular posterior bladder wall. Lower extremity Doppler showed no evidence of DVT. Chest radiograph this morning was also reviewed, which showed some atelectasis. PHYSICAL EXAMINATION: VITAL SIGNS: Today, he is intubated, sedated. Blood pressure 134/79, heart rates 89-100, respiratory rate 15-12, pulse ox 98%. GENERAL: Critically ill, intubated, sedated, comfortable, ET tube is in place. Sclerae are anicteric. Extraocular muscles appear intact. LUNGS: Clear bilaterally, no audible rales or wheeze. CARDIOVASCULAR: Rate is tachycardic. No audible rub. ABDOMEN: Soft, nontender, nondistended. No JVD. No CVA tenderness. Pradhan catheter continues to leak, some tinge of hematuria. LABORATORIES AND DIAGNOSTICS: A pH is 7.45, pCO2 of 37, pO2 89, sodium 143, potassium 4.3, chloride 106, bicarb 28, BUN 68, creatinine 2.58. A1c 5.3, phosphorus 5.4, calcium 7.3, magnesium 1.8. White blood cell count is down to 10.1 from 18 yesterday. Hemoglobin is also down to 7.3 from 9.2 and platelets 137. Urinalysis as noted above. ASSESSMENT AND PLAN: 1. Acute kidney injury. This is improving, likely sepsis and prerenal in nature, some ATN, possible obstructive element as well. There is a right-sided predominance for his renal function as well and right-sided hydronephrosis was noted. He had a prior stent placed by Urology at [facility]. There is no urology support here. Apparently, they refused to take him from the ER and the plan is for him to be transferred to [facility]. The left kidney was 9.3 cm, the right kidney 11.7 cm. Hyperkalemia has improved. Acidosis has also improved and anemia is worse, transfused per primary service. Case discussed with the nurse. [place], [place] PROGRESS NOTE NAME: JUAN M FRANCISCO UNIT #: [id number] ROOM: [facility] DOCTOR: FLOWER VASQUEZ,IZABELLA Ybarra BIRTHDATE: [birth year] IZABELLA CRENSHAW MD CM:PNTRANS [id number] IZABELLA CRENSHAW MD 08/27/16 0603 interface
--- NOTE | ~2016-08-25 | PR ---
[place], [place] PROGRESS NOTE NAME: JUAN M FRANCISCO [facility] #: [id number] UNIT #: [id number] ROOM: [facility] DOCTOR: JENNY MCKEON MD,DOMITILA BIRTHDATE: [birth year] DOS: 08/26/2016 PULMONARY CRITICAL CARE EVALUATION AND MANAGEMENT NOTE SUBJECTIVE: The patient remains in the hospital for the patient and noted mechanical ventilator at this time. Sedation was continued for this patient with lower dose of intravenous Diprivan. He was not noted with any vasopressor therapy. The patient has been currently getting IV unfractionated heparin for this patient as well. He has been noted without any acute hemodynamic instability, feeding for this patient was continued for this patient as renal formula at 40 mL an hour at this time and the dose the patient had been gradually adjusted and progressively increased. OBJECTIVE: VITAL SIGNS: For the patient shows a normal temperature, respiratory rate 12 for this patient was noted. Heart rate of 89-92, blood pressure 112/70-101/55. Intake for the patient is 4.262 liters. The output was 1.631 liters. Pulse oxygen saturation of the patient is noted on 40% oxygen is 98% saturation. HEENT: The patient shows no new change. Head was atraumatic. NECK: Supple. The patient is orally intubated. Orogastric tube is in place. CARDIOVASCULAR: S1, S2 audible. LUNGS: Moderate reduction in the breath sounds were noted in the lungs bilaterally. ABDOMEN: Soft and obese. EXTREMITIES: Shows mild edema. LABORATORY DATA: ABG for the patient this morning assist control mode of mechanical ventilation. The patient's pH of 7.45, pCO2 of 36, pO2 of 88.9. BMP of the patient this morning was noted BUN 68, creatinine 2.58. Glucose 179. Prealbumin was noted as 13. TSH was normal. CK-MB, troponin shows CK-MB was mildly elevated at 4.2, normal CPK and troponin. PT and PTT for the patient this morning were done shows INR remains subtherapeutic at 1.2. PTT noted as 83.1, which is in the therapeutic range. Chest x-ray of the patient that was done this morning shows small area of infiltration with pleural fluid noted. Endotracheal tube for this patient noted appropriate position. NG tube is in the stomach. Endotracheal aspirate of the patient yesterday, many white blood cells, moderate epithelial cells, moderate gram-positive cocci in pairs, chains and clusters with few gram-negative bacilli and gram-positive bacilli. Final culture results were pending. The urine culture showed moderate growth of yeast. IMPRESSION: 1. The patient will be currently admitted to the hospital and noted with acute hypercapnic and hypoxic respiratory failure. 2. Acute sepsis in patient with hypotension, which has been currently resolved. 3. The patient with past history of pulmonary embolism for the patient with subtherapeutic INR, currently getting unfractionated heparin and Coumadin. The patient to maintain a therapeutic INR. 4. History of parkinsonism as well. [place], [place] PROGRESS NOTE NAME: JUAN M FRANCISCO UNIT #: [id number] ROOM: [facility] DOCTOR: DOMITILA DESAI MD BIRTHDATE: [birth year] 5. Acute kidney injury for this patient. ____ noted with reduction in creatinine from yesterday. 6. Amddwodg-pb-mmdafx protein calorie malnutrition status as well. PLAN OF TREATMENT: Continue to maximize the feeding. Continue ventilator bundle management. Continue sedation. Continuation of the antibiotics for the acute pneumonia, adjustment of the antibiotics for the patient will be done based on the culture results. The pneumonia would be considered with gram-positive and gram-negative organisms for the patient, most likely related to aspiration. Monitor the other respiratory status closely. Monitor for abnormal hematuria, which developed previously with anticoagulation at this time, hematuria has been noted, minimal or none. Assess the patient tomorrow morning for the patient for possibility of gradual liberation from mechanical ventilator. Total time for pulmonary critical care evaluation and management was 36 minutes. DOMITILA ALVARADO MD CM:PNTRANS [id number] DOMITILA MCKEON MD 08/27/16130 interface
[~2016-08-25 05:34] MED LIST changes: +ENOXAPARIN80 MG/0.2 SC; +MILK OF MA400 MG/5 M PO
[2016-08-25 06:02] LABS: HEMATOCRIT 29.8 % (42.0-52.0); HEMOGLOBIN 9.2 g/dl (14.0-18.0); MEAN CORPUSCULAR HGB 27.8 pg (27.0-31.0); MEAN CORPUSCULAR HGB CONC 30.9 g/dl (33.0-37.0); MEAN PLATELET VOLUME 11.6 fl (9.6-12.3); PLATELET COUNT AUTOMATED 203 10*3/uL (130-400); RED BLOOD COUNT 3.31 10*6/uL (4.50-5.90); RED CELL DISTRI WIDTH 14.5 % (0-14.5)
[2016-08-25 06:13] LABS: INTERNATIONAL NORM RATIO 1.2 (2.0-3.5); PROTHROMBIN TIME 12.6 SECONDS (9.0-12.4)
[2016-08-25 06:19] LABS: ALBUMIN 2.1 gm/dl (3.1-4.5); ALKALINE PHOSPHATASE 60 U/L (45-117); BILIRUBIN, DIRECT 0.1 mg/dL (0.0-0.2); BILIRUBIN, TOTAL 0.3 mg/dl (0.2-1.0); BUN 75 mg/dl (7-24); CARBON DIOXIDE 30 mmol/L (21-32); CHLORIDE 100 mmol/L (98-107); EST GLOM FILT AFRICAN AMERICAN 21 ml/min; GLUCOSE 132 mg/dL (65-99); SGOT/AST 15 IU/L (3-35); SGPT/ALT 14 U/L (12-78); SODIUM 139 mmol/L (136-145); TOTAL PROTEIN 5.4 gm/dL (6.4-8.2)
[2016-08-25 06:21] LABS: TROPONIN I < 0.015 ng/ml (<0.045)
[2016-08-25 06:27] LABS: LYMPHOCYTE # 1.1 10*3/uL (1.3-4.4); MONOCYTE # 1.6 10*3/uL (0.1-1.0); NEUTROPHIL # 15.3 10*3/uL (2.3-7.9); NEUTROPHILS 85 % (47-73); PLATELET SUFFICIENCY NORMAL (NORMAL); POLYCHROMASIA SLIGHT; POTASSIUM 6.4 mmol/L (3.5-5.1); TOTAL CELLS COUNTED 100 #CELLS; TOXIC GRANULATION SLIGHT
[2016-08-25] MEDS ORDERED: FLUDROCORTISON0.1 MG PO (07:04)
[2016-08-25] MEDS ORDERED: MIDODRINE HCL5 M1 PO (07:04)
[2016-08-25] MEDS ORDERED: MILK OF MA400 MG/5 M PO (07:05)
[2016-08-25] MEDS ORDERED: METHYLPREDNI40 MG/M1 IV (07:06)
[2016-08-25 07:10] LABS: ABG BASE EXCESS -1.6 mmol/L (-2.0-2.0); ABG CO2 CONTENT 26.8 mmol/L (23-27); ABG HCO3 25.1 mmol/l (22-26); ARTERIAL BLOOD GAS PH 7.253 (7.35-7.45); ARTERIAL BLOOD GAS PO2 98.7 mmHg (80-90)
[2016-08-25 09:59] LABS: BILIRUBIN NEGATIVE (NEGATIVE); BLOOD 3+ (NEGATIVE); CLARITY CLOUDY (CLEAR); COLOR RED (YELLOW); GLUCOSE NEGATIVE (NEGATIVE); KETONE NEGATIVE (NEGATIVE); LEUKO ESTERASE 3+ (NEGATIVE); NITRITE NEGATIVE (NEGATIVE); PROTEIN 2+ (NEGATIVE); SPECIFIC GRAVITY 1.015 (1.005-1.030); URINE AMPHETAMINES < 1000 (1000ng/ml); URINE BARBITURATES < 200 (200ng/ml); URINE COCAINE < 300 (300ng/ml); UROBILINOGEN 0.2 E.U./dl (0.2-1.0)
[2016-08-25 10:11] LABS: RBC TNTC rbc/hpf (0-2); URINE REFLEX COMMENT YES (NO)
[2016-08-25 10:12] LABS: WBC TNTC wbc/hpf (0-5)
[2016-08-25 10:34] LABS: ABG BASE EXCESS -1.2 mmol/L (-2.0-2.0); ABG CO2 CONTENT 26.6 mmol/L (23-27); ABG HCO3 24.9 mmol/l (22-26); ABG TEMPERATURE 98.6 F (98.0-99.0); ARTERIAL BLOOD GAS PH 7.293 (7.35-7.45)
[2016-08-25] MEDS ORDERED: TRIAMCINOLONE AC0.1% T (11:36)
[2016-08-25 12:41] LABS: BUN 73 mg/dl (7-24); CARBON DIOXIDE 29 mmol/L (21-32); CHLORIDE 103 mmol/L (98-107); CPK 181 U/L (39-308); EST GLOM FILT AFRICAN AMERICAN 22 ml/min; GLUCOSE 168 mg/dL (65-99); SODIUM 140 mmol/L (136-145)
[2016-08-25 12:44] LABS: TROPONIN I < 0.015 ng/ml (<0.045)
[2016-08-25 12:45] LABS: CKMB 5.3 ng/ml (0.5-3.6)
[2016-08-25 18:04] LABS: ALBUMIN 1.7 gm/dl (3.1-4.5); PHOSPHOROUS 5.5 mg/dL (2.5-4.9); POTASSIUM 5.5 mmol/L (3.5-5.1)
[2016-08-25 18:12] LABS: CPK 156 U/L (39-308)
[2016-08-25 18:15] LABS: CKMB 5.2 ng/ml (0.5-3.6)
[2016-08-25 18:16] LABS: TROPONIN I < 0.015 ng/ml (<0.045)
[2016-08-26] VITALS (11 sets, daily range): BP systolic 96–147; BP diastolic 49–79
[2016-08-26 00:56] LABS: CKMB 4.2 ng/ml (0.5-3.6); CPK 150 U/L (39-308)
[2016-08-26 00:57] LABS: TROPONIN I < 0.015 ng/ml (<0.045)
[2016-08-26 05:38] LABS: ABG BASE EXCESS 2.4 mmol/L (-2.0-2.0); ABG CO2 CONTENT 27.1 mmol/L (23-27); ABG TEMPERATURE 97.9 F (98.0-99.0); ARTERIAL BLOOD GAS PH 7.459 (7.35-7.45); ARTERIAL BLOOD GAS PO2 88.9 mmHg (80-90)
[2016-08-26 05:51] LABS: MAGNESIUM 1.8 mg/dL (1.5-2.1)
[2016-08-26 05:55] LABS: FREE T4 0.77 ng/dl (0.76-1.46); PHOSPHOROUS 5.4 mg/dL (2.5-4.9)
[2016-08-26 06:00] LABS: THYROID STIM HORMONE (HS) 0.45 uIU/ml (0.358-4.75)
[2016-08-26 06:01] LABS: POTASSIUM 4.3 mmol/L (3.5-5.1)
[2016-08-26 06:04] LABS: HEMOGLOBIN 7.3 g/dl (14.0-18.0); MEAN CORPUSCULAR HGB 27.9 pg (27.0-31.0); MEAN CORPUSCULAR HGB CONC 32.3 g/dl (33.0-37.0); MEAN PLATELET VOLUME 11.9 fl (9.6-12.3); RED BLOOD COUNT 2.62 10*6/uL (4.50-5.90); RED CELL DISTRI WIDTH 14.7 % (0-14.5); WHITE BLOOD COUNT 10.1 10*3/uL (4.8-10.8)
[2016-08-26 06:06] LABS: HEMATOCRIT 22.6 % (42.0-52.0); MEAN CELL VOLUME 86.3 fl (80.0-94.0); PLATELET COUNT AUTOMATED 137 10*3/uL (130-400)
[2016-08-26 06:12] LABS: INTERNATIONAL NORM RATIO 1.2 (2.0-3.5); PROTHROMBIN TIME 12.4 SECONDS (9.0-12.4)
[2016-08-26 06:19] LABS: HEMOGLOBIN A1c 5.3 % (4.8-5.6)
[2016-08-26 06:45] LABS: LYMPHOCYTE # 0.4 10*3/uL (1.3-4.4); NEUTROPHIL # 9.7 10*3/uL (2.3-7.9); NEUTROPHILS 96 % (47-73); PLATELET SUFFICIENCY NORMAL (NORMAL); POLYCHROMASIA SLIGHT; TOTAL CELLS COUNTED 100 #CELLS; TOXIC GRANULATION SLIGHT
[2016-08-26 06:55] LABS: FOLIC ACID 14.26 ng/mL (>5.38); VITAMIN D, 25-HYDROXY 14.8 ng/mL (30-100)
== END 2016-08-26 16:00 | disposition short-term general hospital (02) | DRG 871 ==
LOC: ED 05:34 → EDHOLD 06:49 → ICCU 06:49
PROVIDERS: Emergency Medicine; Hospitalist; Internal Medicine Critical Care Medicine; Internal Medicine Nephrology; Student in an Organized Health Care Education/Training Program
PROC: 0BH17EZ Insertion of Endotracheal Airway into Trachea, Via Natural or Artificial Opening (ICD-10-PCS; principal; 2016-08-25)
PROC: 5A1945Z Respiratory Ventilation, 24-96 Consecutive Hours (ICD-10-PCS; principal; 2016-08-25)
PROC: 30243N1 Transfusion of Nonautologous Red Blood Cells into Central Vein, Percutaneous Approach (ICD-10-PCS; 2016-08-26)
DX: A41.9 Sepsis, unspecified organism (principal); R65.21 Severe sepsis with septic shock; N17.0 Acute kidney failure with tubular necrosis; J96.01 Acute respiratory failure with hypoxia; J96.02 Acute respiratory failure with hypercapnia; J69.0 Pneumonitis due to inhalation of food and vomit; E43 Unspecified severe protein-calorie malnutrition; G20 Parkinson's disease; N13.30 Unspecified hydronephrosis; J44.0 Chronic obstructive pulmonary disease with (acute) lower respiratory infection; E87.5 Hyperkalemia; D64.9 Anemia, unspecified; I10 Essential (primary) hypertension; N40.0 Benign prostatic hyperplasia without lower urinary tract symptoms; K57.90 Diverticulosis of intestine, part unspecified, without perforation or abscess without bleeding; I25.10 Atherosclerotic heart disease of native coronary artery without angina pectoris; E78.00 Pure hypercholesterolemia, unspecified; R31.9 Hematuria, unspecified; E66.8 Other obesity; Q13.0 Coloboma of iris; Z87.891 Personal history of nicotine dependence; Z86.711 Personal history of pulmonary embolism; Z80.9 Family history of malignant neoplasm, unspecified; Z79.899 Other long term (current) drug therapy; Z68.24 Body mass index [BMI] 24.0-24.9, adult; Z87.440 Personal history of urinary (tract) infections; Z87.01 Personal history of pneumonia (recurrent)

== ENCOUNTER 2016-08-31 14:53 | Inpatient (IN) | payer MEDICARE ==
[~2016-08-31] VITALS: Ht 183 cm; Wt 91.0 kg
--- NOTE | ~2016-08-31 | PR ---
[place], [place] PROGRESS NOTE [id number] UNIT #: [id number] ROOM: [facility] DOCTOR: JENNY MCKEON MD,DOMITILA BIRTHDATE: [birth year] DOS: 09/03/2016 PULMONARY CRITICAL CARE EVALUATION AND MANAGEMENT NOTE SUBJECTIVE: The patient has been continued on the CPAP for about 12 hours or greater. The patient is switched to assist control mode of mechanical ventilation just because of mild tachypnea. The patient has not noted any acute desaturation. The patient remains awake and alert at this time and intubated. He has been ____ the nursing staff as well. OBJECTIVE: VITAL SIGNS: For the patient, which has been recorded, showed the temperature noted as 101.6 degrees Fahrenheit, respirations 13, heart rate 114, mild sinus tachycardia, blood pressure ____. Intake for the patient recorded as 3.34 L and output 3400 mL. Pulse oxygen saturation of the patient was noted on 3 L nasal canula at 97% saturation. HEENT: Examination shows head was atraumatic. Eyes nonicterus. NECK: Supple. CARDIOVASCULAR: S1, S2 audible. LUNGS: The patient was noted without any wheeze or crackles at this time. ABDOMEN: Soft and obese. EXTREMITIES: Show [id number] edema of the upper and lower extremities. LABORATORY DATA: Arterial blood gas this morning, pH of 7.53, pCO2 of 35, pO2 of 102 with 30% oxygen supplementation. INR was noted at 1.2, subtherapeutic. BMP of the patient that was done this morning shows BUN 32, creatinine 1.43, glucose 143, potassium 3.0. The chest x-ray of the patient that was done, 1 view, this morning as well was noted with no definitive acute abnormal process. Endotracheal tube was noted high riding. IMPRESSION: 1. The patient has been noted currently with acute hypoxic respiratory failure with acute pneumonia, suspected in the left lower lobe with small pleural fluid as well as ____ edema noted as well. 2. Past history of pulmonary embolism. The patient has been treated with anticoagulation as well. 3. History of advanced parkinsonism and recurrent hospitalization. 4. Moderate protein-calorie malnutrition status. PLAN OF TREATMENT: The patient has been ordered for extubation at this time. Continuation of the anticoagulation. Continue bronchodilator. The patient to be assessed for oral feeding after liberation from mechanical ventilation. A swallow test prior to starting the patient on oral food. Other previous treatment plan and management to be continued. Usual care, other supportive plan of therapy and care. Usual medical management and other therapies. Other supportive plan and management to be continued at this time. Supportive care. Total time of pulmonary critical care evaluation and management was 37 minutes. [place], [place] PROGRESS NOTE NAME: [facility] [id number] UNIT #: [id number] ROOM: [facility] DOCTOR: DOMITILA DESAI MD BIRTHDATE: [birth year] DOMITILA ALVARADO MD CM:PNTRANS [id number] DOMITILA MCKEON MD 09/03/16 1537 interface
--- NOTE | ~2016-08-31 | PR ---
[place], [place] PROGRESS NOTE NAME: JUAN M FRANCISCO UNIT #: [id number] ROOM: [facility] DOCTOR: JENNY MCKEON MD,DOMITILA BIRTHDATE: [birth year] DOS: 09/04/2016 PULMONARY FOLLOWUP NOTE SUBJECTIVE: He has been noted tachypnea at the time, but not any oxygen desaturation. The patient has been started with the BiPAP ____ at this time. He was also noted with mental status changes yesterday at the time after the patient ate his food. He has been noted without any distress this morning. The patient stopped the oral feeding and NG tube in place for the feeding. OBJECTIVE: VITAL SIGNS: Normal temperature, respiratory rate 18, heart rate 94, blood pressure 120/58. Pulse oxygen saturation noted on 3 liters cannula 98% saturation. BiPAP 98-100% saturation. The patient was liberated from mechanical ventilator yesterday. HEENT: Showed no new change. The patient has an NG tube in place. NECK: Supple. CARDIOVASCULAR: S1, S2 audible. LUNGS: The patient was noted without any wheezing or crackles at the present time. ABDOMEN: Soft, nontender and obese. EXTREMITIES: Show edema of the upper and lower extremities. LABORATORY DATA: INR noted 1.2 today. BMP this morning, BUN 32, creatinine was normal, glucose 128, potassium 3.4. CBC: WBC count 3.5, hemoglobin 9.1, hematocrit 28.6, platelet count 138,000. IMPRESSION: 1. The patient is status post liberation from mechanical ventilator. The patient with acute hypoxic respiratory failure. 2. He has had congestive heart failure ____ edema as well as acute to moderate protein-calorie malnutrition. 3. Leukopenia and anemia as well. 4. Oropharyngeal dysphagia was suspected. 5. History of advanced parkinsonism. 6. Hypotension. PLAN OF TREATMENT: Continue current plan of management, intensive care unit. The plan of management to be added on for this patient. Continue vasopressor therapy. For the hypotension management, continue the BiPAP and oxygen supplementation. Continuation of current antibiotics. Diuretic therapy for this patient. Aspiration precautions. The patient would benefit from long-term acute care facility assessment as well for further care. [place], [place] PROGRESS NOTE NAME: JUAN M FRANCISCO UNIT #: [id number] ROOM: [facility] DOCTOR: DOMITILA DESAI MD BIRTHDATE: [birth year] DOMITILA ALVARADO MD CM:PNTRANS [id number] [id number] DOMITILA MCKEON MD 09/04/16 1243 interface
--- NOTE | ~2016-08-31 | CON ---
[place], [place] REPORT OF CONSULTATION NAME: JUAN M FRANCISCO UNIT #: [id number] ROOM: [place] [address] DOCTOR: JENNY MCKEON MD,DOMITILA BIRTHDATE: [birth year] DOS: 09/01/2016 Consultation at the request of the hospitalist services. REASON FOR CONSULTATION: Acute respiratory failure. HISTORY OF PRESENT ILLNESS: A 71-year-old white male who has been known to me with past history of multiple hospitalizations and noted longstanding history of centrilobular emphysema, detention resident most of the time in the past several months. He had been admitted in this hospital and was managed for acute respiratory failure, developed hematuria and was transferred to [facility]. The patient has been managed over there and discharged to another nursing facility, [facility]. The patient has been readmitted to the hospital. The patient on 08/31/2016, was brought to the Emergency Room and the patient has been noted symptoms of shortness of breath. The patient was also noted with unresponsiveness as well. A code blue was called for the patient and was intubated and started on mechanical ventilation. Currently, the patient has been intubated, getting intravenous sedation with IV Diprivan. He has not been noted with any findings of hemoptysis or excessive secretion production from the endotracheal tube. The patient has been noted with rectal temperature elevation of 101 degrees Fahrenheit as well with mild sinus tachycardia with a heart rate of 102 beats per minute maximum heart rate was noted. REVIEW OF SYSTEMS: At this time, cannot be completed since the patient is currently intubated and remains on the mechanical ventilator. PAST MEDICAL HISTORY: 1. Noted with history of recurrent multiple hospitalizations, recently in the past 6 months or more. 2. Longstanding parkinsonism. 3. History of chronic hypercapnic and hypoxemic respiratory failure history as well. 4. Oropharyngeal dysphagia. 5. History of aspiration pneumonia. 6. Essential hypertension. 7. Urinary tract infection. 8. History of intermittent hematuria as well. 9. Chronic obesity. 10. Chronically decreased mobility and mostly bed bound status. PAST SURGICAL HISTORY: Noted. 1. TURP. 2. Cystoscopy. 3. Intubation and mechanical ventilation several times. 4. Fiberoptic bronchoscopy as well. SOCIAL HISTORY: The patient is , was a resident of detention at this time for the past 6 months. As well has been admitted to long-term acute care facility and acute care several times. He has been noted history of tobacco [place], [place] REPORT OF CONSULTATION NAME: JUAN M FARNCISCO UNIT #: [id number] ROOM: [place] [address] DOCTOR: JENNY MCKEON MD,[facility] BIRTHDATE: [birth year] use, which was discontinued many years ago. The patient used to smoke about a pack of cigarettes per day as noted previously from the . There was no history of alcohol or illicit drug use. FAMILY HISTORY: Of the patient was described as mother from complications of natural causes at the age of 9090 years old. Father from complications related to unknown cancer at the age of 7878 years old. CURRENT ADMINISTERED MEDICATION: 1. Noted use of Lovenox by the patient for therapeutic anticoagulation dose, 1 mg/kg b.i.d. 2. Tylenol 650 q. 8 hours p.r.n. use. 3. Protonix 40 mg IV daily. 4. Levophed for the medical management of hypotension. 5. Lasix 40 mg b.i.d. intravenously. 6. Levaquin, IV vancomycin, IV Zosyn and other p.r.n. medication administration. ALLERGIES: NO KNOWN DRUG ALLERGIES. PHYSICAL EXAMINATION: GENERAL: A 71-year-old white male who is currently intubated on the mechanical ventilator. Height was noted for the patient as 6 feet, weight of 200 pounds, BMI 27.1. VITAL SIGNS: Rectal temperature 101.8 degrees Fahrenheit, oral temperature noted as normal, respiratory rate recorded as 14-22, heart rate of 110 to 95 with mild sinus tachycardia, blood pressure of 128/68 to 142/70. Pulse oxygen saturation noted on 30% oxygen 97% saturation. HEENT: The patient is orally intubated, orogastric tube is in place. NECK: Supple. CARDIOVASCULAR SYSTEM: S1, S2 is audible. LUNGS: Noted without any wheeze or crackles. Breath sounds noted mildly decreased bilaterally. ABDOMEN: Noted chronic obesity. Bowel sounds present. EXTREMITIES: Shows edema of the upper and the lower extremities. LABORATORY DATA: Past culture of the endotracheal aspirate of the patient on the shows normal lora. Isolation blood culture from the also noted no bacterial growth. CBC on 08/31/2016, WBC count was noted as 6.8, hemoglobin 10.3, hematocrit of 33.7 with a platelet count of 120,000. CMP of the patient 08/31, BUN 41, creatinine 1.49, glucose 103. Albumin 1.7. ProBNP 760. BMP of the patient of 76 was noted at that time, BUN 65, creatinine 2.58. Prealbumin for this patient was noted as 13 at that time. The arterial blood gas of the patient that was done yesterday post-intubation, pH of 7.40, pCO2 of 40, pO2 of 121, 50% oxygen, tidal volume 6 and 50 mL. The arterial blood gas, which was done this morning, 30% oxygen, pH of 7.49, pCO2 of 31, pO2 100. CBC this morning, 09/01, WBC count 10.8, hemoglobin 10.9, hematocrit 33.4, platelet count 163,000. CK-MB, troponin remains normal. PT/PTT are noted, INR subtherapeutic at 1.2. BMP of patient of 12, BUN 43, creatinine 1.48. Remaining electrolytes were normal. Review of the chest x-ray of the patient post-intubation, [place], [place] REPORT OF CONSULTATION NAME: JUAN M FRANCISCO UNIT #: [id number] ROOM: [place] [address] DOCTOR: JENNY MCKEON MD,[facility] BIRTHDATE: [birth year] mechanical ventilation was noted with endotracheal tube in appropriate position. The NG tube was noted in the stomach. Endotracheal tube noted in place. Mild pulmonary venous congestion marker noted without any gross evidence of pulmonary infiltration at the present time. IMPRESSION: 1. The patient has been noted with history of recurrent unresponsiveness. The patient is currently noted with acute respiratory failure with history of advanced parkinsonism. The unresponsiveness may be related to the history of parkinsonism of the patient as well. Possibility of acute tracheobronchitis cannot be excluded. There was no evidence of gross pulmonary infiltration or consolidation noted on the chest x-ray. 2. Past history of pulmonary embolism. The patient has subtherapeutic INR at this time. 3. History of chronic obesity. 4. History of oropharyngeal dysphagia and decreased mobility. 5. History of recurrent hematuria for the patient, which worsened with the use of anticoagulants. 6. The patient with moderate protein calorie malnutrition status. PLAN OF TREATMENT: At this time, the patient will be continued on Diprivan and IV sedation. Monitor all the culture results. The patient has been noted on very broad spectrum intravenous antibiotics. After the available blood culture for this patient and the other culture results, antibiotic de-escalation showed a curve. Continue ventilator bundle management. Nutritional support has been ordered. The patient was also noted moderate protein calorie malnutrition status and oral feeding with pulmonary formula. Another prealbumin level was ordered. Past prealbumin noted 13.0. Further change in treatment for the patient to be done based on progression of the illness. Total time for pulmonary critical care evaluation and management was 34 minutes. DOMITILA ALVARADO MD CM:CONSTR:REPORT OF CONSULTATION 1034 09/01/16 2151 interface
--- NOTE | ~2016-08-31 | O ---
[place], [place] OPERATIVE NOTE NAME: JUAN M FRANCISCO UNIT #: [id number] ROOM: [place] [address] DOCTOR: LUPE VASQUEZ DO BIRTHDATE: [birth year] DOS: 08/31/2016 This is for endotracheal intubation and rapid response. The patient was found to be satting in the 88% on 2 liters nasal cannula. He was not verbally responsive, responsive to pain. Given the patient's respiratory failure and is not responsive, we decided that BiPAP would not be appropriate and his poor respiratory effort. The patient was transferred to the ICU. He was today with 20 mg of etomidate and 100 succinylcholine. A 7.5 ET tube was placed under GlideScope visualization. Breath sounds were checked and found adequate bilaterally. No sounds heard in the epigastrium. Good color changes were seen on the CO2 detector, of the tube was appreciated. The patient tolerated the procedure well. Chest x-ray pending for tube placement. LUPE VASQUEZ DO RAISA JUAREZ DO CM:OPRECORD:OPERATIVE NOTE [id number] LUPE VASQUEZ DO 08/31/161943 interface
--- NOTE | ~2016-08-31 | PR ---
[place], [place] PROGRESS NOTE NAME: JUAN M FRANCISCO UNIT #: [id number] ROOM: [facility] DOCTOR: DOMITILA DESAI MD BIRTHDATE: [birth year] DOS: 09/05/2016 SUBJECTIVE: He has been noted awake and alert at this time and endotracheal tube remains in place. The patient assessed by the speech therapy department and recommended some modification in diet because of the current dysphagia. He had been using the BiPAP. Noted with mild tachypnea. The patient was alert in no distress. OBJECTIVE: VITAL SIGNS: Normal temperature, respiratory rate 33, heart rate of 99, blood pressure of 88/47-100/55. Pulse oxygen saturation noted on 3 liters nasal cannula 97% saturation. HEENT: Examination shows no acute change. NECK: Supple. CARDIOVASCULAR: S1, S2 audible. LUNGS: Noted with pmyw-on-vjzyhapq. Decreased breath sounds noted in the lungs bilaterally. ABDOMEN: Soft, nontender and obese. EXTREMITIES: Still shows edema. LABORATORY DATA: CBC today: WBC count 3.5, hemoglobin 9.2, hematocrit 29.4, platelet count was normal. BMP this morning, BUN 30, mildly elevated; creatinine normal, glucose 126. Carbon dioxide 37, mildly elevated. IMPRESSION: 1. The patient with resolving acute hypoxic respiratory failure. 2. Mild edema. 3. Chronic metabolic alkalosis secondary to diuretic therapy. 4. Acute congestive heart failure. The patient was also suspected peripheral edema. 5. Leukopenia and anemia as well as ____ oropharyngeal dysphagia. 6. History of parkinsonism. PLAN OF TREATMENT: No change in the plan of management. Continue with the BiPAP with the oxygen supplementation, bronchodilators and other as previously. Feeding patient per recommendation of the nutrition services support. Aspiration precautions. Speech therapy. Medical management of hypertension with pressors if necessary. [place], [place] PROGRESS NOTE NAME: JUAN M FRANCISCO UNIT #: [id number] ROOM: [facility] DOCTOR: DOMITILA DESAI MD BIRTHDATE: [birth year] DOMITILA ALVARADO MD CM:PNTRANS 1105 [id number] DOMITILA MCKEON MD 09/05/16 1200 interface
--- NOTE | ~2016-08-31 | PR ---
[place], [place] PROGRESS NOTE [id number] UNIT #: [id number] ROOM: [facility] DOCTOR: JENNY MCKEON MD,DOMITILA BIRTHDATE: [birth year] DOS: 09/02/2016 PULMONARY CRITICAL CARE EVALUATION AND MANAGEMENT SUBJECTIVE: The patient remains on mechanical ventilator. The patient has been sedated with intravenous Diprivan. The feeding, which the patient has tolerated from an NG tube. He has not been noted any new changes. Tachycardia noted that was with mild hypotension at times. He has been continued on broad-spectrum intravenous antibiotics. Ventilator bundle management was also continued. Sedation was given with intravenous Diprivan. OBJECTIVE: VITAL SIGNS: Showed the temperature noted at 100.9 degrees Fahrenheit. The rectal temperature noted 100.4 degrees Fahrenheit previously. Respiratory rate 14, heart rate 119-105, blood pressure of 82/53 to 103/84 noted. Intake for the patient was noted at 2.427 liters, output 3700 mL at 1.274 liters. Pulse oxygen saturation on 30% oxygen mechanical ventilator assist control mode, 94-95% saturation. HEENT: Shows no new changes. Head was atraumatic. Eyes, nonicterus. NECK: Supple. CARDIOVASCULAR: S1, S2 is audible. LUNGS: The patient was noted without any wheezing or crackles at the present time. Breaths are noted mildly decreased bilaterally. ABDOMEN: Soft, nontender. EXTREMITIES: Show mild edema. CENTRAL NERVOUS SYSTEM: The patient is currently sedated. LABORATORY DATA: Arterial blood gas assist control mode today, pH of 7.49, pCO2 of 33, pO2 of 81.5 with 30% oxygen. CBC of 09/02/2016; WBC count 10.3, hemoglobin 9, hematocrit 30.1, platelet count 168,000. BMP on 09/02/2016 shows BUN 37, creatinine 1.50, glucose 165. Potassium noted 3.3. Prealbumin 15. Urine culture shows heavy growth of yeast. IMPRESSION: 1. The patient was currently admitted to the hospital and noted with acute hypercapnic and hypoxic respiratory failure. 2. The patient with evidence of small left pleural effusion as well with possibility of acute pneumonia cannot be completely excluded in that area. The finding noted limited because of the portable x-ray and current body habitus. 3. History of parkinsonism. 4. History of recurrent respiratory failure. The patient on intubation and mechanical ventilation. 5. Urinary tract infection as well. PLAN OF TREATMENT: The patient needs to be continued on the bronchodilators with oxygen supplementation. Ventilator bundle management will be continued. Discontinue sedation of the patient at this time. Once the patient is awake, patient trial of CPAP of 5, pressure support of 10 for possible readiness assessment of liberation from mechanical ventilator ____ plus arterial blood gases as well. Respiratory alkalosis, the patient was noted, which will be [place], [place] PROGRESS NOTE NAME: JUAN M FRANCISCO UNIT #: [id number] ROOM: [facility] DOCTOR: JENNY MCKEON MD,DOMITILA BIRTHDATE: [birth year] corrected by reducing the tidal volume if the patient failed to be liberated from mechanical ventilator. Continue maximizing nutritional support for protein calorie malnutrition status. Usual care, other supportive plan of management and therapies. Continue other previous treatment. Total time for pulmonary critical care evaluation and management was 36 minutes. DOMITILA ALVARADO MD CM:PNMINERVA [id number] DOMITILA MCKEON MD 09/02/16 1724 interface
[2016-08-31 14:53] VITALS: BP 134/76
[~2016-08-31 14:53] MED LIST changes: +METHYLPREDNI40 MG/M1 IV; +MIDODRINE HCL5 M1 PO; +TRIAMCINOLONE AC0.1% T
[2016-08-31 15:25] LABS: BASO % 0.1 % (0.0-1.0); EOS # 0.1 10*3/uL (0.0-0.4); EOS % 0.7 % (1.0-4.0); HEMATOCRIT 33.7 % (42.0-52.0); HEMOGLOBIN 10.3 g/dl (14.0-18.0); IG # 0.1 10*3/uL (0.0-0.1); LYMPH # 0.7 10*3/uL (1.3-4.4); LYMPH % 10.5 % (27.0-41.0); MEAN CELL VOLUME 90.8 fl (80.0-94.0); MEAN CORPUSCULAR HGB 27.8 pg (27.0-31.0); MEAN CORPUSCULAR HGB CONC 30.6 g/dl (33.0-37.0); MONO # 0.3 10*3/uL (0.1-1.0); MONO % 4.2 % (3.0-9.0); NEUT # 5.7 10*3/uL (2.3-7.9); NEUT % 83.6 % (47.0-73.0); PLATELET COUNT AUTOMATED 120 10*3/uL (130-400); RED BLOOD COUNT 3.71 10*6/uL (4.50-5.90); RED CELL DISTRI WIDTH 14.6 % (0-14.5); WHITE BLOOD COUNT 6.8 10*3/uL (4.8-10.8)
[2016-08-31 15:40] LABS: ALBUMIN 1.7 gm/dl (3.1-4.5); ALKALINE PHOSPHATASE 63 U/L (45-117); BILIRUBIN, TOTAL 0.2 mg/dl (0.2-1.0); BUN 41 mg/dl (7-24); CARBON DIOXIDE 30 mmol/L (21-32); CHLORIDE 105 mmol/L (98-107); EST GLOM FILT AFRICAN AMERICAN 56 ml/min; GLUCOSE 103 mg/dL (65-99); MAGNESIUM 1.7 mg/dL (1.5-2.1); POTASSIUM 4.7 mmol/L (3.5-5.1); SGOT/AST 23 IU/L (3-35); SODIUM 141 mmol/L (136-145)
[2016-08-31 15:42] LABS: SGPT/ALT < 6 U/L (12-78); TROPONIN I < 0.015 ng/ml (<0.045)
[2016-08-31] MEDS ORDERED: ASPIRIN81 M1 PO (15:45)
[2016-08-31] MEDS ORDERED: FLOMAX0.4 MG PO (15:46)
[2016-08-31] MEDS ORDERED: FLUDROCORTISON0.1 MG PO (15:46)
[2016-08-31] MEDS ORDERED: SINEMET 25-1001 TA1 PO (15:46)
[2016-08-31] MEDS ORDERED: METOPROLOL25 MG PO (15:47)
[2016-08-31] MEDS ORDERED: MIDODRINE HCL5 M1 PO (15:47)
[2016-08-31] MEDS ORDERED: MILK OF MA400 MG/51 PO (15:47)
[2016-08-31] MEDS ORDERED: MULTI-VITAMIN1 EACH PO (15:48)
[2016-08-31] MEDS ORDERED: OMEPRAZOLE20 M2 PO (15:48)
[2016-08-31 17:30] VITALS: BP 122/74
[2016-08-31 18:15] VITALS: BP 149/84
[2016-08-31 19:41] LABS: ABG BASE EXCESS 0.6 mmol/L (-2.0-2.0); ABG CO2 CONTENT 26.3 mmol/L (23-27); ABG TEMPERATURE 97.4 F (98.0-99.0); ARTERIAL BLOOD GAS PH 7.403 (7.35-7.45)
[2016-08-31 20:00] VITALS: BP 132/78
[2016-09-01] VITALS (87 sets, daily range): BP systolic 60–166; BP diastolic 37–96
[2016-09-01 01:08] LABS: CKMB 1.3 ng/ml (0.5-3.6)
[2016-09-01 05:16] LABS: ABG BASE EXCESS 1.5 mmol/L (-2.0-2.0); ABG CO2 CONTENT 24.9 mmol/L (23-27); ABG HCO3 23.9 mmol/l (22-26); ABG TEMPERATURE 98.6 F (98.0-99.0); ARTERIAL BLOOD GAS PH 7.498 (7.35-7.45)
[2016-09-01 06:34] LABS: BASO % 0.1 % (0.0-1.0); EOS # 0.1 10*3/uL (0.0-0.4); EOS % 0.6 % (1.0-4.0); HEMATOCRIT 33.4 % (42.0-52.0); HEMOGLOBIN 10.9 g/dl (14.0-18.0); IG # 0.1 10*3/uL (0.0-0.1); LYMPH # 1.3 10*3/uL (1.3-4.4); LYMPH % 11.6 % (27.0-41.0); MEAN CORPUSCULAR HGB 27.8 pg (27.0-31.0); MEAN CORPUSCULAR HGB CONC 32.6 g/dl (33.0-37.0); MONO # 0.6 10*3/uL (0.1-1.0); MONO % 5.2 % (3.0-9.0); NEUT # 8.8 10*3/uL (2.3-7.9); NEUT % 81.4 % (47.0-73.0); RED BLOOD COUNT 3.92 10*6/uL (4.50-5.90); RED CELL DISTRI WIDTH 14.4 % (0-14.5); WHITE BLOOD COUNT 10.8 10*3/uL (4.8-10.8)
[2016-09-01 06:36] LABS: MEAN CELL VOLUME 85.2 fl (80.0-94.0); PLATELET COUNT AUTOMATED 163 10*3/uL (130-400)
[2016-09-01 06:47] LABS: CKMB 0.8 ng/ml (0.5-3.6)
[2016-09-01 07:09] LABS: FREE T4 0.96 ng/dl (0.76-1.46); POTASSIUM 3.8 mmol/L (3.5-5.1)
[2016-09-01 07:12] LABS: INTERNATIONAL NORM RATIO 1.2 (2.0-3.5); PROTHROMBIN TIME 12.7 SECONDS (9.0-12.4)
[2016-09-01 07:15] LABS: THYROID STIM HORMONE (HS) 1.84 uIU/ml (0.358-4.75)
[2016-09-01 07:25] LABS: HEMOGLOBIN A1c 6.1 % (4.8-5.6)
[2016-09-01 07:41] LABS: FOLIC ACID 17.35 ng/mL (>5.38)
[2016-09-01 09:20] LABS: BILIRUBIN NEGATIVE (NEGATIVE); BLOOD 3+ (NEGATIVE); CLARITY CLOUDY (CLEAR); COLOR YELLOW (YELLOW); GLUCOSE NEGATIVE (NEGATIVE); KETONE 1+ (NEGATIVE); LEUKO ESTERASE 3+ (NEGATIVE); NITRITE NEGATIVE (NEGATIVE); PH 5.5 (5.0-9.0); PROTEIN 1+ (NEGATIVE); UROBILINOGEN 0.2 E.U./dl (0.2-1.0)
[2016-09-01 09:42] LABS: BACTERIA 2+; RBC 21-30 rbc/hpf (0-2); WBC TNTC wbc/hpf (0-5)
[2016-09-01 09:43] LABS: URINE REFLEX COMMENT YES (NO); YEAST 3+
[2016-09-01 12:06] LABS: CKMB 0.8 ng/ml (0.5-3.6)
[2016-09-02] VITALS (93 sets, daily range): BP systolic 68–116; BP diastolic 35–84
[2016-09-02 05:22] LABS: ABG BASE EXCESS 3.1 mmol/L (-2.0-2.0); ABG CO2 CONTENT 26.5 mmol/L (23-27); ABG HCO3 25.5 mmol/l (22-26); ABG TEMPERATURE 100.4 F (98.0-99.0); ARTERIAL BLOOD GAS PH 7.499 (7.35-7.45); ARTERIAL BLOOD GAS PO2 81.5 mmHg (80-90)
[2016-09-02 06:00] LABS: BASO % 0.1 % (0.0-1.0); EOS # 0.1 10*3/uL (0.0-0.4); EOS % 1.1 % (1.0-4.0); HEMATOCRIT 30.1 % (42.0-52.0); HEMOGLOBIN 9.8 g/dl (14.0-18.0); IG # 0.1 10*3/uL (0.0-0.1); LYMPH # 1.1 10*3/uL (1.3-4.4); LYMPH % 10.3 % (27.0-41.0); MEAN CELL VOLUME 84.8 fl (80.0-94.0); MEAN CORPUSCULAR HGB 27.6 pg (27.0-31.0); MEAN CORPUSCULAR HGB CONC 32.6 g/dl (33.0-37.0); MEAN PLATELET VOLUME 11.4 fl (9.6-12.3); MONO # 0.4 10*3/uL (0.1-1.0); MONO % 3.6 % (3.0-9.0); NEUT # 8.6 10*3/uL (2.3-7.9); NEUT % 84.1 % (47.0-73.0); PLATELET COUNT AUTOMATED 168 10*3/uL (130-400); RED BLOOD COUNT 3.55 10*6/uL (4.50-5.90); RED CELL DISTRI WIDTH 14.4 % (0-14.5); WHITE BLOOD COUNT 10.3 10*3/uL (4.8-10.8)
[2016-09-02 06:11] LABS: POTASSIUM 3.3 mmol/L (3.5-5.1)
[2016-09-02 11:15] LABS: ABG BASE EXCESS 3.2 mmol/L (-2.0-2.0); ABG HCO3 26.8 mmol/l (22-26); ABG TEMPERATURE 98.1 F (98.0-99.0); ARTERIAL BLOOD GAS PH 7.462 (7.35-7.45)
[2016-09-02 16:00] LABS: ABG BASE EXCESS 2.3 mmol/L (-2.0-2.0); ABG CO2 CONTENT 28.7 mmol/L (23-27); ABG HCO3 27.3 mmol/l (22-26); ABG TEMPERATURE 99.2 F (98.0-99.0); ARTERIAL BLOOD GAS PH 7.385 (7.35-7.45)
[2016-09-03] VITALS (89 sets, daily range): BP systolic 74–130; BP diastolic 25–76
[2016-09-03 05:03] LABS: ABG CO2 CONTENT 29.8 mmol/L (23-27); ABG HCO3 28.8 mmol/l (22-26); ABG TEMPERATURE 98.2 F (98.0-99.0); ARTERIAL BLOOD GAS PH 7.53 (7.35-7.45)
[2016-09-03 06:34] LABS: HEMATOCRIT 28.7 % (42.0-52.0); HEMOGLOBIN 9.3 g/dl (14.0-18.0); MEAN CELL VOLUME 86.2 fl (80.0-94.0); MEAN CORPUSCULAR HGB 27.9 pg (27.0-31.0); MEAN CORPUSCULAR HGB CONC 32.4 g/dl (33.0-37.0); MEAN PLATELET VOLUME 11.6 fl (9.6-12.3); PLATELET COUNT AUTOMATED 157 10*3/uL (130-400); RED BLOOD COUNT 3.33 10*6/uL (4.50-5.90); RED CELL DISTRI WIDTH 14.6 % (0-14.5); WHITE BLOOD COUNT 3.1 10*3/uL (4.8-10.8)
[2016-09-03 06:50] LABS: INTERNATIONAL NORM RATIO 1.2 (2.0-3.5); PROTHROMBIN TIME 13.4 SECONDS (9.0-12.4)
[2016-09-03 07:02] LABS: EOSINOPHIL # 0.1 10*3/uL (0-0.4); EOSINOPHILS 4 % (1-4); LYMPHOCYTE # 0.5 10*3/uL (1.3-4.4); METAMYELOCYTES 1 % (0-0); NEUTROPHIL # 2.5 10*3/uL (2.3-7.9); NEUTROPHILS 80 % (47-73); TOTAL CELLS COUNTED 100 #CELLS
[2016-09-03 07:03] LABS: PLATELET SUFFICIENCY NORMAL (NORMAL); POLYCHROMASIA SLIGHT
[2016-09-03 15:20] LABS: ABG BASE EXCESS 3.4 mmol/L (-2.0-2.0); ABG CO2 CONTENT 30.7 mmol/L (23-27); ABG TEMPERATURE 98.5 F (98.0-99.0); ARTERIAL BLOOD GAS PH 7.355 (7.35-7.45); ARTERIAL BLOOD GAS PO2 72.3 mmHg (80-90)
[2016-09-04] VITALS (91 sets, daily range): BP systolic 82–134; BP diastolic 32–69
[2016-09-04 06:05] LABS: BUN 32 mg/dl (7-24); CARBON DIOXIDE 34 mmol/L (21-32); CHLORIDE 101 mmol/L (98-107); EST GLOM FILT AFRICAN AMERICAN > 60 ml/min; GLUCOSE 128 mg/dL (65-99); POTASSIUM 3.4 mmol/L (3.5-5.1); SODIUM 143 mmol/L (136-145)
[2016-09-04 06:08] LABS: HEMATOCRIT 28.6 % (42.0-52.0); HEMOGLOBIN 9.1 g/dl (14.0-18.0); MEAN CORPUSCULAR HGB CONC 31.8 g/dl (33.0-37.0); MEAN PLATELET VOLUME 12.1 fl (9.6-12.3); PLATELET COUNT AUTOMATED 138 10*3/uL (130-400); RED BLOOD COUNT 3.25 10*6/uL (4.50-5.90); RED CELL DISTRI WIDTH 14.7 % (0-14.5); WHITE BLOOD COUNT 3.5 10*3/uL (4.8-10.8)
[2016-09-04 06:21] LABS: INTERNATIONAL NORM RATIO 1.2 (2.0-3.5); PROTHROMBIN TIME 13.4 SECONDS (9.0-12.4)
[2016-09-04 06:45] LABS: EOSINOPHIL # 0.1 10*3/uL (0-0.4); EOSINOPHILS 2 % (1-4); LYMPHOCYTE # 0.6 10*3/uL (1.3-4.4); METAMYELOCYTES 1 % (0-0); MONOCYTE # 0.2 10*3/uL (0.1-1.0); NEUTROPHIL # 2.6 10*3/uL (2.3-7.9); NEUTROPHILS 73 % (47-73); TOTAL CELLS COUNTED 100 #CELLS
[2016-09-04 06:46] LABS: OVALOCYTES FEW; PLATELET SUFFICIENCY NORMAL (NORMAL); POLYCHROMASIA SLIGHT
[2016-09-05] VITALS (46 sets, daily range): BP systolic 74–130; BP diastolic 36–64
[2016-09-05 05:54] LABS: BASO % 0.3 % (0.0-1.0); EOS # 0.1 10*3/uL (0.0-0.4); EOS % 3.4 % (1.0-4.0); HEMATOCRIT 29.4 % (42.0-52.0); HEMOGLOBIN 9.2 g/dl (14.0-18.0); LYMPH # 0.7 10*3/uL (1.3-4.4); LYMPH % 20.7 % (27.0-41.0); MEAN CELL VOLUME 88.8 fl (80.0-94.0); MEAN CORPUSCULAR HGB 27.8 pg (27.0-31.0); MEAN CORPUSCULAR HGB CONC 31.3 g/dl (33.0-37.0); MEAN PLATELET VOLUME 11.8 fl (9.6-12.3); MONO # 0.2 10*3/uL (0.1-1.0); MONO % 6.5 % (3.0-9.0); NEUT # 2.4 10*3/uL (2.3-7.9); NEUT % 68.8 % (47.0-73.0); PLATELET COUNT AUTOMATED 138 10*3/uL (130-400); RED BLOOD COUNT 3.31 10*6/uL (4.50-5.90); RED CELL DISTRI WIDTH 14.6 % (0-14.5); WHITE BLOOD COUNT 3.5 10*3/uL (4.8-10.8)
[2016-09-05 05:58] LABS: BUN 30 mg/dl (7-24); CARBON DIOXIDE 37 mmol/L (21-32); CHLORIDE 100 mmol/L (98-107); EST GLOM FILT AFRICAN AMERICAN > 60 ml/min; GLUCOSE 126 mg/dL (65-99); POTASSIUM 3.6 mmol/L (3.5-5.1); SODIUM 145 mmol/L (136-145)
[2016-09-05 06:06] LABS: INTERNATIONAL NORM RATIO 1.6 (2.0-3.5); PROTHROMBIN TIME 17.5 SECONDS (9.0-12.4)
[2016-09-05] MEDS ORDERED: VANCOMYCIN250 MG/2.5 PO (11:50)
== END 2016-09-05 12:30 | DRG 871 ==
LOC: ED 14:53 → ICCU 17:09 → EDHOLD 17:09 → 4E 17:15 → ICCU 18:37
PROVIDERS: Emergency Medicine; Hospitalist; Internal Medicine; Internal Medicine Critical Care Medicine
PROC: 5A1945Z Respiratory Ventilation, 24-96 Consecutive Hours (ICD-10-PCS; principal; 2016-08-31)
PROC: 0BH17EZ Insertion of Endotracheal Airway into Trachea, Via Natural or Artificial Opening (ICD-10-PCS; principal; 2016-08-31)
PROC: 02HV33Z Insertion of Infusion Device into Superior Vena Cava, Percutaneous Approach (ICD-10-PCS; 2016-09-02)
PROC: 5A09457 Assistance with Respiratory Ventilation, 24-96 Consecutive Hours, Continuous Positive Airway Pressure (ICD-10-PCS; 2016-09-02)
DX: A41.9 Sepsis, unspecified organism (principal); R65.21 Severe sepsis with septic shock; N17.0 Acute kidney failure with tubular necrosis; J96.01 Acute respiratory failure with hypoxia; J96.02 Acute respiratory failure with hypercapnia; I11.0 Hypertensive heart disease with heart failure; J18.9 Pneumonia, unspecified organism; E43 Unspecified severe protein-calorie malnutrition; I50.9 Heart failure, unspecified; E87.3 Alkalosis; A04.7 Enterocolitis due to Clostridium difficile; J44.0 Chronic obstructive pulmonary disease with (acute) lower respiratory infection; N39.0 Urinary tract infection, site not specified; N40.0 Benign prostatic hyperplasia without lower urinary tract symptoms; G20 Parkinson's disease; E66.8 Other obesity; F02.80 Dementia in other diseases classified elsewhere, unspecified severity, without behavioral disturbance, psychotic disturbance, mood disturbance, and anxiety; E78.00 Pure hypercholesterolemia, unspecified; D64.9 Anemia, unspecified; I25.10 Atherosclerotic heart disease of native coronary artery without angina pectoris; Z80.9 Family history of malignant neoplasm, unspecified; Z86.711 Personal history of pulmonary embolism; Z79.82 Long term (current) use of aspirin; Z79.899 Other long term (current) drug therapy; Z68.26 Body mass index [BMI] 26.0-26.9, adult

== ENCOUNTER 2016-09-14 17:07 | Inpatient (IN) | payer MEDICARE ==
[~2016-09-14] VITALS: Ht 182.9 cm; Wt 87.8 kg
[2016-09-14] VITALS (11 sets, daily range): BP systolic 100–161; BP diastolic 48–97
--- NOTE | ~2016-09-14 | CON ---
[place], [place] REPORT OF CONSULTATION NAME: JUAN M FRANCISCO [facility] #: [id number] UNIT #: [id number] ROOM: [facility] DOCTOR: JENNY MCKEON MD,DOMITILA BIRTHDATE: [birth year] DOS: 09/15/2016 PULMONARY CRITICAL CARE EVALUATION AND MANAGEMENT REASON FOR CONSULTATION: To assess the patient with acute respiratory failure. HISTORY OF PRESENT ILLNESS: This is a 71-year-old male who has been known to me from the past, the patient has been hospitalized in 08/2016. The patient has been admitted in this hospital, noted with acute respiratory failure. He has been noted with a history of C. diff colitis, respiratory failure and bleeding from the rectum. The patient was transferred from [facility] on 09/05/2016 after management over there; the details were unknown. The patient was transferred to the group home facility. In the group home facility, the patient has been noted with decrease in responsiveness with oxygen desaturation. The oxygen saturation noted was only 60% on room air. The patient was attempted by the EMS for intubation, was noted not successful, placed on the CPAP. Oxygen saturation was still noted low in the 80% range. He has been intubated on mechanical ventilation successfully. The patient arrived in the Emergency Room of [facility] on 09/14/2016. Following that, the patient has been admitted to the hospital and transferred to the Intensive Care Unit. The patient has not been noted with any symptoms of hemoptysis. He was noted with a macular rash which was noted on the chest. The remaining history of the patient and review of systems could not be completed since the patient is intubated, noted on mechanical ventilation. PAST MEDICAL HISTORY: 1. The patient was noted with a history of recurrent respiratory failure, with unresponsiveness several times in the past 6 months, the exact etiology and pathology was not clearly understood. 2. History of C. difficile colitis. 3. Longstanding parkinsonism. 4. History of chronic hypercapnic and hypoxic respiratory failure. 5. Oropharyngeal dysphagia intermittently with aspiration pneumonia in the left lower lobe. 6. Essential hypertension. 7. History of urinary tract infection. 8. Intermittent hematuria. 9. Chronic obesity. 10. Decreased mobility and mostly bedridden status at this time because of several illnesses and hospitalizations. PAST SURGICAL HISTORY: 1. TURP. 2. Cystoscopy. 3. Intubation and mechanical ventilation. 4. Fiberoptic bronchoscopy. SOCIAL HISTORY: The patient is and resident of a halfway. There was no history of alcohol use or illicit drug use. Tobacco use was noted, [place], [place] REPORT OF CONSULTATION NAME: JUAN M FRANCISCO UNIT #: [id number] ROOM: [facility] DOCTOR: JENNY MCKEON MD,DOMITILA BIRTHDATE: [birth year] however, a few years ago; which has been discontinued and the patient smoked about a pack of cigarettes per day. The exact duration of this patient's tobacco use was unknown. No history of alcohol or illicit drug use. FAMILY HISTORY: Mother from complication of natural causes, age was 90 years old. Father of complication related to unknown cancer at the age of 7878 years old. MEDICATIONS: The current medication administered noted use of aspirin, Flomax, Florinef, Lovenox for DVT prophylaxis, Sinemet, metoprolol tartrate, Dulera, methylprednisolone 8 mg p.o. daily, fluconazole, IV Zosyn, vancomycin, Levaquin, and other p.r.n. medications. DRUG ALLERGIES: Noted for no known drug allergies. PHYSICAL EXAMINATION: GENERAL: This is a 71-year-old white male who has been currently noted to be awake, follows some vocal commands on assessment. The height of the patient was recorded by the nursing staff at the time of current admission with height of 6 feet, weight of 176 pounds, BMI 27. VITAL SIGNS: Temperature is noted 99.6 degrees Fahrenheit and rectal temperature that was normal temperature. Respiratory rate was recorded between 16-24. Heart rate 96-82. Blood pressure was noted as 161/97 to 113/63. Intake for the patient of 1300 mL approximately and output was 900 mL approximately. Pulse oxygen saturation 99% on 35% oxygen. HEENT: Currently, the patient is intubated, orogastric tube is in place. NECK: Supple and obese. CARDIOVASCULAR: S1, S2 audible. LUNGS: The patient was noted without any wheeze or crackles. ABDOMEN: Soft, nontender. LABORATORY DATA: The patient's various stool for C. diff toxin, 09/13/2016, were noted negative. CBC, 09/14/2016, WBC count 7.39, pCO2 of 57, pO2 of 85 on 40% oxygen with assist control mechanical ventilation. The CMP that was done on 09/14/2016 shows glucose 115 and BUN and creatinine was normal. CO2 of 34. Total protein 5.4, albumin 2.1. CBC on 09/14/2016, WBC count was normal, hemoglobin 9.5, hematocrit 31.1, platelet count 246,000. Urine drug screen for the patient noted as negative. Arterial blood gas of the patient, pH is 7.58, pCO2 of 34, pO2 of 105 and 40% oxygen assist control mode of mechanical ventilation. CT scan of the head that was done on 09/14/2016 does not show acute intracranial abnormalities. Arterial blood gas repeated after adjustment of the mechanical ventilator with decreased tidal volume, the pH is 7.56, pCO2 of 32, pO2 of 116, the patient on tidal volume of 550 mL. The arterial blood gas this morning on 35% oxygen, pH of 7.52, pCO2 of 38, pO2 of 115, tidal volume 550 mL, rate of 12 with 40% oxygen and PEEP of 5.0. CBC this morning, hemoglobin 8.6, hematocrit 26.83, WBC count and platelet count were normal. CMP of the patient of 09/15/2016 was noted as CO2 of 34. Remaining electrolytes were normal. Review of the radiology data for this patient that was done on this hospitalization, chest x-ray that was done yesterday post-intubation, endotracheal tube was noted in appropriate position as well with the tape about [place], [place] REPORT OF CONSULTATION NAME: JUAN M FRANCISCO UNIT #: [id number] ROOM: [facility] DOCTOR: JENNY MCKEON MD,DOMITILA BIRTHDATE: [birth year] 2.5 cm above the sonny level. The NG tube was noted in the stomach area. Small blunting of the left costophrenic angle essentially remains unchanged as previously. IMPRESSION: 1. The patient who has been currently admitted to the hospital with recurrent unresponsiveness. The patient's exact etiology remains unclear related to possible parkinsonism, transient seizure activity or transient ischemic attack. 2. Acute hypercapnic and hypoxic respiratory failure, chronic hypoxic and hypercapnic respiratory related to that. 3. History of hematuria known in the past as well. Hematuria has been noted intermittent with the patient etiology unclear. The patient has been assessed in [facility], where they evaluated with cystoscopy. No exact pathology was pointed out. 4. Mild obesity was also noted as well. 5. Longstanding history of parkinsonism. 6. Muscle deconditioning as well. 7. Anemia, most likely of chronic disease. 8. The patient's rash of the skin, may be related to the drugs. PLAN OF TREATMENT: Continue the patient's current antibiotics, the patient's bronchodilators and oxygen supplementation. Monitor cultures of the urine and blood and the sputum to make adjustment of antibiotics. So far, preliminary culture of the urine was described as greater than 100,000 colony-forming units of gram-negative rods. Mechanical ventilator and bundle management has been noted in progress. The patient has been started on CPAP of 5, pressure support of 10 that was obtained 2 hours since the patient noted completely off sedation. Once the trial of 2 hours with CPAP completed without any respiratory compromise or other medical problems, arterial blood gases will be obtained. After review of the arterial blood gases, we will consider possibility of liberation from the mechanical ventilation. Nutrition support will be started if the patient remains on mechanical ventilator today. Assess the patient for swallowing post-extubation as well. Usual care. Other supportive plan of management is in progress as well. Bronchodilator will be continued to help mobilize secretions. Assess for possibility of any drug that patient could result in recurrent skin rash as well. It may be a drug-induced rash. Total time for pulmonary critical care evaluation and management was 35 minutes. [place], [place] REPORT OF CONSULTATION NAME: JUAN M FRANCISCO UNIT #: [id number] ROOM: [facility] DOCTOR: DOMITILA DESAI MD BIRTHDATE: [birth year] DOMITILA ALVARADO MD CM:CONSTR:REPORT OF CONSULTATION 1219 09/15/16 2560 interface
[~2016-09-14 17:07] MED LIST changes: +METOPROLOL25 MG PO; +MILK OF MA400 MG/51 PO; +MULTI-VITAMIN1 EACH PO; +OMEPRAZOLE20 M2 PO; +SINEMET 25-1001 TA1 PO; +VANCOMYCIN250 MG/2.5 PO
[2016-09-14 17:48] LABS: ABG BASE EXCESS 8.3 mmol/L (-2.0-2.0); ABG HCO3 34.2 mmol/l (22-26); ABG TEMPERATURE 98.2 F (98.0-99.0); ARTERIAL BLOOD GAS PH 7.394 (7.35-7.45); ARTERIAL BLOOD GAS PO2 85.7 mmHg (80-90)
[2016-09-14 17:49] LABS: HEMATOCRIT 31.1 % (42.0-52.0); HEMOGLOBIN 9.5 g/dl (14.0-18.0); MEAN CORPUSCULAR HGB 28.1 pg (27.0-31.0); MEAN CORPUSCULAR HGB CONC 30.5 g/dl (33.0-37.0); MEAN PLATELET VOLUME 9.9 fl (9.6-12.3); PLATELET COUNT AUTOMATED 246 10*3/uL (130-400); RED BLOOD COUNT 3.38 10*6/uL (4.50-5.90); RED CELL DISTRI WIDTH 16.7 % (0-14.5); WHITE BLOOD COUNT 6.1 10*3/uL (4.8-10.8)
[2016-09-14 18:02] LABS: ALBUMIN 2.1 gm/dl (3.1-4.5); ALKALINE PHOSPHATASE 85 U/L (45-117); BILIRUBIN, TOTAL 0.2 mg/dl (0.2-1.0); BUN 17 mg/dl (7-24); CARBON DIOXIDE 34 mmol/L (21-32); CHLORIDE 103 mmol/L (98-107); EST GLOM FILT AFRICAN AMERICAN > 60 ml/min; GLUCOSE 159 mg/dL (65-99); POTASSIUM 4.7 mmol/L (3.5-5.1); SGOT/AST 24 IU/L (3-35); SGPT/ALT 11 U/L (12-78); SODIUM 143 mmol/L (136-145); TOTAL PROTEIN 5.4 gm/dL (6.4-8.2)
[2016-09-14] MEDS ORDERED: CARBIDOPA PO (18:11)
[2016-09-14] MEDS ORDERED: [UNRECOGNIZED DRUG - OTHER] PO (18:11)
[2016-09-14] MEDS ORDERED: ASPIRIN81 M1 PO (18:11)
[2016-09-14] MEDS ORDERED: DULERA 200 MCG8.8 GM PO (18:12)
[2016-09-14] MEDS ORDERED: FLUDROCORTISON0.1 MG PO (18:12)
[2016-09-14] MEDS ORDERED: DUONEB 3 MG/3 ML3 M1 INH (18:12)
[2016-09-14 18:13] LABS: LYMPHOCYTE # 0.7 10*3/uL (1.3-4.4); METAMYELOCYTES 2 % (0-0); MONOCYTE # 0.3 10*3/uL (0.1-1.0); NEUTROPHIL # 4.9 10*3/uL (2.3-7.9); NEUTROPHILS 81 % (47-73); POLYCHROMASIA SLIGHT; TOTAL CELLS COUNTED 100 #CELLS; TOXIC GRANULATION SLIGHT
[2016-09-14] MEDS ORDERED: TAMSULOSIN HCL0.4 MG PO (18:13)
[2016-09-14] MEDS ORDERED: Lopressor25 MG PO (18:13)
[2016-09-14] MEDS ORDERED: METHYLPREDNISONE4 MG PO (18:13)
[2016-09-14] MEDS ORDERED: DAILY VALUE1 EACH PO (18:13)
[2016-09-14 18:14] LABS: STOMATOCYTE FEW
[2016-09-14 18:15] LABS: PLATELET SUFFICIENCY NORMAL (NORMAL)
[2016-09-14] MEDS ORDERED: VANCOMYCIN250 MG/2.5 PO (18:15)
[2016-09-14 18:26] LABS: BILIRUBIN NEGATIVE (NEGATIVE); CLARITY TURBID (CLEAR); COLOR YELLOW (YELLOW); GLUCOSE NEGATIVE (NEGATIVE)
[2016-09-14 18:27] LABS: BLOOD TRACE-INTACT (NEGATIVE); KETONE NEGATIVE (NEGATIVE); LEUKO ESTERASE 3+ (NEGATIVE); NITRITE POSITIVE (NEGATIVE); PROTEIN TRACE (NEGATIVE); SPECIFIC GRAVITY 1.005 (1.005-1.030); UROBILINOGEN 0.2 E.U./dl (0.2-1.0)
[2016-09-14 18:31] LABS: URINE AMPHETAMINES < 1000 (1000ng/ml); URINE BARBITURATES < 200 (200ng/ml); URINE COCAINE < 300 (300ng/ml)
[2016-09-14 18:33] LABS: BACTERIA 4+; URINE REFLEX COMMENT YES (NO); WBC TNTC wbc/hpf (0-5)
[2016-09-14 19:31] LABS: ABG BASE EXCESS 10.5 mmol/L (-2.0-2.0); ABG TEMPERATURE 99.6 F (98.0-99.0); ARTERIAL BLOOD GAS PH 7.588 (7.35-7.45)
[2016-09-14 21:20] LABS: ABG BASE EXCESS 9.9 mmol/L (-2.0-2.0); ABG HCO3 32.9 mmol/l (22-26); ABG TEMPERATURE 98.2 F (98.0-99.0); ARTERIAL BLOOD GAS PH 7.564 (7.35-7.45)
[2016-09-15] VITALS (9 sets, daily range): BP systolic 101–120; BP diastolic 47–63
[2016-09-15 05:28] LABS: BUN 17 mg/dl (7-24); CARBON DIOXIDE 34 mmol/L (21-32); CHLORIDE 103 mmol/L (98-107); EST GLOM FILT AFRICAN AMERICAN > 60 ml/min; GLUCOSE 79 mg/dL (65-99); MAGNESIUM 1.7 mg/dL (1.5-2.1); PHOSPHOROUS 2.2 mg/dL (2.5-4.9); POTASSIUM 3.9 mmol/L (3.5-5.1); SODIUM 146 mmol/L (136-145)
[2016-09-15 06:07] LABS: BASO % 0.1 % (0.0-1.0); EOS # 0.1 10*3/uL (0.0-0.4); EOS % 1.2 % (1.0-4.0); HEMATOCRIT 28.3 % (42.0-52.0); HEMOGLOBIN 8.6 g/dl (14.0-18.0); IG # 0.2 10*3/uL (0.0-0.1); LYMPH # 1.8 10*3/uL (1.3-4.4); LYMPH % 23.9 % (27.0-41.0); MEAN CELL VOLUME 91.6 fl (80.0-94.0); MEAN CORPUSCULAR HGB 27.8 pg (27.0-31.0); MEAN CORPUSCULAR HGB CONC 30.4 g/dl (33.0-37.0); MEAN PLATELET VOLUME 10.6 fl (9.6-12.3); MONO # 0.6 10*3/uL (0.1-1.0); MONO % 7.2 % (3.0-9.0); PLATELET COUNT AUTOMATED 197 10*3/uL (130-400); RED BLOOD COUNT 3.09 10*6/uL (4.50-5.90); RED CELL DISTRI WIDTH 16.3 % (0-14.5); WHITE BLOOD COUNT 7.7 10*3/uL (4.8-10.8)
[2016-09-15 06:11] LABS: ABG BASE EXCESS 7.9 mmol/L (-2.0-2.0); ABG CO2 CONTENT 32.3 mmol/L (23-27); ABG HCO3 31.1 mmol/l (22-26); ABG TEMPERATURE 98.6 F (98.0-99.0); ARTERIAL BLOOD GAS PH 7.523 (7.35-7.45)
[2016-09-15 11:27] LABS: ABG CO2 CONTENT 33.7 mmol/L (23-27); ABG HCO3 32.3 mmol/l (22-26); ABG TEMPERATURE 98.7 F (98.0-99.0); ARTERIAL BLOOD GAS PH 7.463 (7.35-7.45)
[2016-09-16] VITALS: BP 104/52
[2016-09-16 04:00] VITALS: BP 104/44
[2016-09-16 05:58] LABS: BASO % 0.2 % (0.0-1.0); EOS # 0.1 10*3/uL (0.0-0.4); EOS % 1.2 % (1.0-4.0); HEMATOCRIT 25.3 % (42.0-52.0); HEMOGLOBIN 7.5 g/dl (14.0-18.0); IG # 0.1 10*3/uL (0.0-0.1); LYMPH # 1.2 10*3/uL (1.3-4.4); MEAN CELL VOLUME 92.7 fl (80.0-94.0); MEAN CORPUSCULAR HGB 27.5 pg (27.0-31.0); MEAN CORPUSCULAR HGB CONC 29.6 g/dl (33.0-37.0); MEAN PLATELET VOLUME 10.6 fl (9.6-12.3); MONO # 0.4 10*3/uL (0.1-1.0); MONO % 7.8 % (3.0-9.0); NEUT # 3.2 10*3/uL (2.3-7.9); NEUT % 64.6 % (47.0-73.0); PLATELET COUNT AUTOMATED 166 10*3/uL (130-400); RED BLOOD COUNT 2.73 10*6/uL (4.50-5.90); RED CELL DISTRI WIDTH 17.2 % (0-14.5)
[2016-09-16 06:08] LABS: ALBUMIN 1.7 gm/dl (3.1-4.5); ALKALINE PHOSPHATASE 58 U/L (45-117); BILIRUBIN, TOTAL 0.4 mg/dl (0.2-1.0); BUN 18 mg/dl (7-24); CARBON DIOXIDE 32 mmol/L (21-32); CHLORIDE 105 mmol/L (98-107); EST GLOM FILT AFRICAN AMERICAN > 60 ml/min; GLUCOSE 95 mg/dL (65-99); POTASSIUM 3.8 mmol/L (3.5-5.1); SGOT/AST 19 IU/L (3-35); SODIUM 144 mmol/L (136-145); TOTAL PROTEIN 4.6 gm/dL (6.4-8.2)
[2016-09-16 06:18] LABS: SGPT/ALT < 6 U/L (12-78)
[2016-09-16 08:00] VITALS: BP 118/67
[2016-09-16 12:00] VITALS: BP 134/68
[2016-09-16 16:00] VITALS: BP 125/61
[2016-09-16 20:00] VITALS: BP 155/52
[2016-09-17] VITALS: BP 151/57
[2016-09-17 04:56] LABS: ABG BASE EXCESS 5.3 mmol/L (-2.0-2.0); ABG CO2 CONTENT 33.8 mmol/L (23-27); ABG HCO3 31.8 mmol/l (22-26); ABG TEMPERATURE 97.7 F (98.0-99.0); ARTERIAL BLOOD GAS PH 7.328 (7.35-7.45)
[2016-09-17 08:00] VITALS: BP 127/50
[2016-09-17 12:00] VITALS: BP 124/63
[2016-09-17 14:05] LABS: ORGANISM ID Not indicated. (.); SPECIMEN SOURCE Urine (.); STREPTOCOCCUS PNEUMONIAE AG Negative (Negative)
[2016-09-17 16:00] VITALS: BP 115/54
[2016-09-17 20:00] VITALS: BP 135/56
[2016-09-18] VITALS: BP 121/48
[2016-09-18 06:42] LABS: BASO % 0.3 % (0.0-1.0); HEMATOCRIT 26.9 % (42.0-52.0); IG # 0.1 10*3/uL (0.0-0.1); LYMPH % 25.5 % (27.0-41.0); MEAN CELL VOLUME 95.1 fl (80.0-94.0); MEAN CORPUSCULAR HGB 28.3 pg (27.0-31.0); MEAN CORPUSCULAR HGB CONC 29.7 g/dl (33.0-37.0); MEAN PLATELET VOLUME 10.6 fl (9.6-12.3); MONO # 0.3 10*3/uL (0.1-1.0); MONO % 8.3 % (3.0-9.0); NEUT # 2.5 10*3/uL (2.3-7.9); NEUT % 62.6 % (47.0-73.0); PLATELET COUNT AUTOMATED 184 10*3/uL (130-400); RED BLOOD COUNT 2.83 10*6/uL (4.50-5.90)
[2016-09-18 07:11] LABS: BUN 13 mg/dl (7-24); CARBON DIOXIDE 33 mmol/L (21-32); CHLORIDE 104 mmol/L (98-107); EST GLOM FILT AFRICAN AMERICAN > 60 ml/min; GLUCOSE 130 mg/dL (65-99); POTASSIUM 3.8 mmol/L (3.5-5.1); SODIUM 145 mmol/L (136-145)
[2016-09-18 08:00] VITALS: BP 111/54
[2016-09-18] MEDS ORDERED: LEVAQUIN750 M1 PO (11:51)
[2016-09-18] MEDS ORDERED: FLUCONAZOLE100 MG NG (11:51)
[2016-09-18 12:00] VITALS: BP 104/44
[2016-09-19 18:07] LABS: LEGIONELLA URINARY ANTIGEN Negative (Negative)
== END 2016-09-18 16:05 | disposition other institution (70) | DRG 208 ==
LOC: ED 17:07 → ICCU 17:51 → EDHOLD 17:51 → ICCU 18:55 → 5E 09-16 10:45
PROVIDERS: Emergency Medicine; Internal Medicine; Internal Medicine Critical Care Medicine
PROC: 0BH17EZ Insertion of Endotracheal Airway into Trachea, Via Natural or Artificial Opening (ICD-10-PCS; principal; 2016-09-14)
PROC: 5A1935Z Respiratory Ventilation, Less than 24 Consecutive Hours (ICD-10-PCS; principal; 2016-09-14)
PROC: 5A09457 Assistance with Respiratory Ventilation, 24-96 Consecutive Hours, Continuous Positive Airway Pressure (ICD-10-PCS; 2016-09-15)
DX: J96.22 Acute and chronic respiratory failure with hypercapnia (principal); E43 Unspecified severe protein-calorie malnutrition; G93.41 Metabolic encephalopathy; J18.9 Pneumonia, unspecified organism; E87.3 Alkalosis; E87.0 Hyperosmolality and hypernatremia; J44.0 Chronic obstructive pulmonary disease with (acute) lower respiratory infection; J44.9 Chronic obstructive pulmonary disease, unspecified; G20 Parkinson's disease; F02.80 Dementia in other diseases classified elsewhere, unspecified severity, without behavioral disturbance, psychotic disturbance, mood disturbance, and anxiety; B49 Unspecified mycosis; D72.810 Lymphocytopenia; D64.9 Anemia, unspecified; E55.9 Vitamin D deficiency, unspecified; N40.0 Benign prostatic hyperplasia without lower urinary tract symptoms; I10 Essential (primary) hypertension; E66.9 Obesity, unspecified; I25.10 Atherosclerotic heart disease of native coronary artery without angina pectoris; E78.00 Pure hypercholesterolemia, unspecified; B35.1 Tinea unguium; R73.9 Hyperglycemia, unspecified; J96.21 Acute and chronic respiratory failure with hypoxia; Z87.01 Personal history of pneumonia (recurrent); Z90.79 Acquired absence of other genital organ(s); Z80.9 Family history of malignant neoplasm, unspecified; Z79.82 Long term (current) use of aspirin; Z86.711 Personal history of pulmonary embolism; Z79.899 Other long term (current) drug therapy; Z87.891 Personal history of nicotine dependence; Z68.27 Body mass index [BMI] 27.0-27.9, adult; Z87.440 Personal history of urinary (tract) infections; E66.8 Other obesity; Y95 Nosocomial condition

== ENCOUNTER 2016-09-22 05:54 | Inpatient (IN) | payer MEDICARE ==
[2016-09-22] VITALS (21 sets, daily range): BP systolic 91–143; BP diastolic 52–82
[~2016-09-22] VITALS: Ht 172.7 cm; Wt 89.8 kg
[~2016-09-22 05:54] MED LIST changes: +CARBIDOPA PO; +DAILY VALUE1 EACH PO; +DULERA 200 MCG8.8 GM PO; +FLUCONAZOLE100 MG NG; +LEVAQUIN750 M1 PO; +METHYLPREDNISONE4 MG PO; +TAMSULOSIN HCL0.4 MG PO; +[UNRECOGNIZED DRUG - OTHER] PO
[2016-09-22 06:48] LABS: HEMATOCRIT 26.5 % (42.0-52.0); HEMOGLOBIN 7.9 g/dl (14.0-18.0); MEAN CELL VOLUME 95.3 fl (80.0-94.0); MEAN CORPUSCULAR HGB 28.4 pg (27.0-31.0); MEAN CORPUSCULAR HGB CONC 29.8 g/dl (33.0-37.0); MEAN PLATELET VOLUME 10.5 fl (9.6-12.3); PLATELET COUNT AUTOMATED 176 10*3/uL (130-400); RED BLOOD COUNT 2.78 10*6/uL (4.50-5.90); RED CELL DISTRI WIDTH 16.6 % (0-14.5); WHITE BLOOD COUNT 7.8 10*3/uL (4.8-10.8)
[2016-09-22 07:05] LABS: BUN 18 mg/dl (7-24); CARBON DIOXIDE 31 mmol/L (21-32); CHLORIDE 104 mmol/L (98-107); EST GLOM FILT AFRICAN AMERICAN > 60 ml/min; GLUCOSE 231 mg/dL (65-99); POTASSIUM 4.4 mmol/L (3.5-5.1); SODIUM 146 mmol/L (136-145)
[2016-09-22 07:07] LABS: ATYPICAL LYMPHS 2 % (0-0); LYMPHOCYTE # 0.9 10*3/uL (1.3-4.4); METAMYELOCYTES 2 % (0-0); MONOCYTE # 0.1 10*3/uL (0.1-1.0); MYELOCYTES 1 % (0-0); NEUTROPHIL # 6.6 10*3/uL (2.3-7.9); NEUTROPHILS 84 % (47-73); POLYCHROMASIA SLIGHT; TOTAL CELLS COUNTED 100 #CELLS
[2016-09-22 07:08] LABS: HYPOCHROMIA SLIGHT; PLATELET SUFFICIENCY NORMAL (NORMAL); TOXIC GRANULATION SLIGHT
[2016-09-22 09:03] LABS: LA>2 REFLEX 2 HR DRAW NOW
[2016-09-22 09:27] LABS: LA>2 RFLX FOLLOW UP AT 2 HRS 3.2 mmol/L (0.4-2.0)
[2016-09-22 11:09] LABS: BILIRUBIN NEGATIVE (NEGATIVE); BLOOD 3+ (NEGATIVE); CLARITY TURBID (CLEAR); COLOR YELLOW (YELLOW); GLUCOSE NEGATIVE (NEGATIVE); KETONE NEGATIVE (NEGATIVE); LEUKO ESTERASE 3+ (NEGATIVE); NITRITE NEGATIVE (NEGATIVE); PH 6.5 (5.0-9.0); PROTEIN 2+ (NEGATIVE); SPECIFIC GRAVITY 1.025 (1.005-1.030); UROBILINOGEN 0.2 E.U./dl (0.2-1.0)
[2016-09-22 11:18] LABS: LA>2 REFLEX 4 HR DRAW NOW
[2016-09-22 11:19] LABS: ABG BASE EXCESS 8.1 mmol/L (-2.0-2.0); ABG HCO3 34.2 mmol/l (22-26); ARTERIAL BLOOD GAS PH 7.386 (7.35-7.45)
[2016-09-22 11:24] LABS: ARTERIAL BLOOD GAS PO2 36.7 mmHg (80-90)
[2016-09-22 11:30] LABS: BACTERIA 4+; EPITHELIAL CELLS 0-2; RBC TNTC rbc/hpf (0-2); URINE REFLEX COMMENT YES (NO); WBC TNTC wbc/hpf (0-5)
[2016-09-22 11:43] LABS: ABG BASE EXCESS 8.3 mmol/L (-2.0-2.0); ABG CO2 CONTENT 34.6 mmol/L (23-27); ABG HCO3 33.1 mmol/l (22-26); ARTERIAL BLOOD GAS PH 7.445 (7.35-7.45); ARTERIAL BLOOD GAS PO2 88.4 mmHg (80-90)
[2016-09-22 12:21] LABS: BASO % 0.1 % (0.0-1.0); EOS % 0.1 % (1.0-4.0); HEMATOCRIT 29.3 % (42.0-52.0); HEMOGLOBIN 9.1 g/dl (14.0-18.0); IG # 0.3 10*3/uL (0.0-0.1); LYMPH # 0.3 10*3/uL (1.3-4.4); LYMPH % 2.4 % (27.0-41.0); MEAN CORPUSCULAR HGB 28.3 pg (27.0-31.0); MEAN CORPUSCULAR HGB CONC 31.1 g/dl (33.0-37.0); MEAN PLATELET VOLUME 10.2 fl (9.6-12.3); MONO # 0.7 10*3/uL (0.1-1.0); MONO % 4.7 % (3.0-9.0); NEUT # 12.5 10*3/uL (2.3-7.9); NEUT % 90.5 % (47.0-73.0); PLATELET COUNT AUTOMATED 213 10*3/uL (130-400); RED BLOOD COUNT 3.21 10*6/uL (4.50-5.90); RED CELL DISTRI WIDTH 16.3 % (0-14.5); WHITE BLOOD COUNT 13.9 10*3/uL (4.8-10.8)
[2016-09-22 12:58] LABS: MEAN CELL VOLUME 91.3 fl (80.0-94.0)
[2016-09-22 13:00] LABS: ALBUMIN 1.9 gm/dl (3.1-4.5); BILIRUBIN, TOTAL 0.3 mg/dl (0.2-1.0); BUN 24 mg/dl (7-24); CARBON DIOXIDE 33 mmol/L (21-32); CHLORIDE 104 mmol/L (98-107); EST GLOM FILT AFRICAN AMERICAN > 60 ml/min; GLUCOSE 193 mg/dL (65-99); MAGNESIUM 1.8 mg/dL (1.5-2.1); POTASSIUM 3.7 mmol/L (3.5-5.1); SGOT/AST 63 IU/L (3-35); SODIUM 146 mmol/L (136-145)
[2016-09-22 13:08] LABS: INTERNATIONAL NORM RATIO 1.1 (2.0-3.5); PROTHROMBIN TIME 11.4 SECONDS (9.0-12.4)
[2016-09-22 13:10] LABS: ALKALINE PHOSPHATASE 85 U/L (45-117); SGPT/ALT 27 U/L (12-78); TOTAL PROTEIN 4.9 gm/dL (6.4-8.2)
[2016-09-23] VITALS: BP 113/70
[2016-09-23 04:00] VITALS: BP 133/73
[2016-09-23 05:47] LABS: BASO % 0.1 % (0.0-1.0); HEMATOCRIT 27.5 % (42.0-52.0); HEMOGLOBIN 8.7 g/dl (14.0-18.0); IG # 0.1 10*3/uL (0.0-0.1); LYMPH # 0.9 10*3/uL (1.3-4.4); MEAN CELL VOLUME 88.4 fl (80.0-94.0); MEAN CORPUSCULAR HGB CONC 31.6 g/dl (33.0-37.0); MEAN PLATELET VOLUME 11.2 fl (9.6-12.3); MONO # 0.7 10*3/uL (0.1-1.0); MONO % 5.2 % (3.0-9.0); NEUT # 11.4 10*3/uL (2.3-7.9); NEUT % 86.6 % (47.0-73.0); NUCLEATED RED BLOOD CELL 0.2 % (0.0-0.0); PLATELET COUNT AUTOMATED 196 10*3/uL (130-400); RED BLOOD COUNT 3.11 10*6/uL (4.50-5.90); WHITE BLOOD COUNT 13.2 10*3/uL (4.8-10.8)
[2016-09-23 06:00] LABS: ALBUMIN 1.7 gm/dl (3.1-4.5); BILIRUBIN, TOTAL 0.4 mg/dl (0.2-1.0); MAGNESIUM 1.6 mg/dL (1.5-2.1); PHOSPHOROUS 3.8 mg/dL (2.5-4.9); TOTAL PROTEIN 4.6 gm/dL (6.4-8.2)
[2016-09-23 07:05] LABS: ABG BASE EXCESS 8.1 mmol/L (-2.0-2.0); ABG CO2 CONTENT 32.3 mmol/L (23-27); ABG HCO3 31.2 mmol/l (22-26); ABG TEMPERATURE 101.5 F (98.0-99.0); ARTERIAL BLOOD GAS PH 7.511 (7.35-7.45)
[2016-09-23 08:00] VITALS: BP 152/71
[2016-09-23 11:56] LABS: ABG BASE EXCESS 6.9 mmol/L (-2.0-2.0); ABG CO2 CONTENT 31.1 mmol/L (23-27); ABG TEMPERATURE 100.8 F (98.0-99.0); ARTERIAL BLOOD GAS PH 7.502 (7.35-7.45); ARTERIAL BLOOD GAS PO2 60.2 mmHg (80-90)
[2016-09-23 12:00] VITALS: BP 138/72
[2016-09-23 12:34] LABS: ABG BASE EXCESS 7.5 mmol/L (-2.0-2.0); ABG HCO3 30.8 mmol/l (22-26); ABG TEMPERATURE 101.3 F (98.0-99.0); ARTERIAL BLOOD GAS PH 7.488 (7.35-7.45)
== END 2016-09-23 13:20 | disposition expired | DRG 871 ==
LOC: ED 05:54 → EDHOLD 06:19 → ICCU 06:19
PROVIDERS: Emergency Medicine; Hospitalist; Internal Medicine; Internal Medicine Critical Care Medicine
PROC: 0BH17EZ Insertion of Endotracheal Airway into Trachea, Via Natural or Artificial Opening (ICD-10-PCS; principal; 2016-09-22)
PROC: 5A2204Z Restoration of Cardiac Rhythm, Single (ICD-10-PCS; 2016-09-22)
PROC: 5A1945Z Respiratory Ventilation, 24-96 Consecutive Hours (ICD-10-PCS; 2016-09-22)
PROC: 5A12012 Performance of Cardiac Output, Single, Manual (ICD-10-PCS; 2016-09-22)
DX: A41.9 Sepsis, unspecified organism (principal); G93.41 Metabolic encephalopathy; I46.9 Cardiac arrest, cause unspecified; J96.21 Acute and chronic respiratory failure with hypoxia; I63.9 Cerebral infarction, unspecified; N17.0 Acute kidney failure with tubular necrosis; J90 Pleural effusion, not elsewhere classified; E43 Unspecified severe protein-calorie malnutrition; J18.9 Pneumonia, unspecified organism; N39.0 Urinary tract infection, site not specified; E87.0 Hyperosmolality and hypernatremia; J98.11 Atelectasis; J44.0 Chronic obstructive pulmonary disease with (acute) lower respiratory infection; G93.1 Anoxic brain damage, not elsewhere classified; R65.20 Severe sepsis without septic shock; D53.9 Nutritional anemia, unspecified; R73.9 Hyperglycemia, unspecified; E78.00 Pure hypercholesterolemia, unspecified; I48.91 Unspecified atrial fibrillation; I25.10 Atherosclerotic heart disease of native coronary artery without angina pectoris; G20 Parkinson's disease; N40.0 Benign prostatic hyperplasia without lower urinary tract symptoms; F02.80 Dementia in other diseases classified elsewhere, unspecified severity, without behavioral disturbance, psychotic disturbance, mood disturbance, and anxiety; E55.9 Vitamin D deficiency, unspecified; Z66 Do not resuscitate; I10 Essential (primary) hypertension; Z87.891 Personal history of nicotine dependence; Z80.9 Family history of malignant neoplasm, unspecified; Z79.82 Long term (current) use of aspirin; Z86.711 Personal history of pulmonary embolism; Z79.899 Other long term (current) drug therapy; Z51.5 Encounter for palliative care